=== PATIENT | female | born 1990 | race Caucasian/White ===

== ENCOUNTER 2016-09-28 11:55 | Emergency (ER) | payer MEDICAID ==
[~2016-09-28] VITALS: Ht 170.2 cm; Wt 158.8 kg
[~2016-09-28 11:55] MED LIST: AZIT250T PO; CEPH500C PO; FLUO40CA12 PO; INDOCIN; METR500T21 PO; NALT1TAB PO; NAPR500T PO; ONDA8TAB13 PO; OSLT75C PO; PENT1TAB PO; PRD20T PO; TOPAMAX; TPR25T PO
--- NOTE | 2016-09-28 12:25 | ED GU-Female ---
General Chief Complaint: -Female Stated Complaint: VAG BLEEDING ABD PAIN/CRAMPING Nursing Triage Note: to ER with complaints of vaginal bleeding since having Mirena removed on 09/21/16. Patient reports that it was just intermittent spotting until today, and she has been passing large clots and has noticed heavy bleeding. Patient reports that she has soaked through 3 pads and 2 depends in the past 4 hours. Nursing Sepsis Screen: No Definite Risk Source: patient Exam Limitations: no limitations History of Present Illness Time seen by provider: 12:23 Initial Comments To ER with reports of vaginal bleeding since having her Mirena removed on . She had this in place since 2009 and decided that she would like to have another child. She had this removed on the for that reason. She's had some spotting since then but the bleeding became much heavier today and was passing large clots. She called the nurse line on her insurance card who told her this could be an ectopic and patient is now tearful and worried about that. She reports associated abdominal cramping. Timing/Duration: just prior to arrival, getting worse Severity/Quality: moderate Location: unknown Radiation: none Activities at Onset: none Prior Genitourinary Problems: none Allergies and Home Medications Allergies Coded Allergies: latex (Verified Allergy, Unknown, 11/28/06) paroxetine (Verified Allergy, Unknown, 11/28/06) Uncoded Allergies: STRAWBERRIES (Allergy, Unknown, 11/28/06) Home Medications Azithromycin 250 Mg Tablet, 250 MG PO UD, #6 TAKE 2 TABLETS TODAY, THEN TAKE 1 TABLET DAILY FOR 4 MORE DAYS Prescribed by: SEBASTIAN ACOSTA on 03/27/15 1344 Cephalexin 500 Mg Capsule, 500 MG PO TID, #21 Ref 0 Prescribed by: MICHAEL JOHNSON on 04/07/15 003 Fluoxetine Hcl 40 Mg Capsule, 1 EACH PO DAILY, (Reported) Metronidazole 500 Mg Tablet, 500 MG PO Q8H, #21 Ref 0 Prescribed by: MICHAEL JOHNSON on 04/07/15 003 Naltrexone HCl/Bupropion HCl 1 Each Tablet.er, 1 EACH PO, (Reported) Naproxen 500 Mg Tablet, 500 MG PO BID, #20 Ref 0 Prescribed by: MICHAEL JOHNSON on 04/07/1538 Ondansetron 8 Mg Tab.rapdis, 8 MG PO Q6H PRN for NAUSEA/VOMITING, #10 Ref 0 Prescribed by: MICHAEL JOHNSON on 04/07/15 0039 Pentazocine Hcl/Naloxone Hcl 1 Tab Tablet, 1 TAB PO, (Reported) Prednisone 20 Mg Tab, 20 MG PO BID, #10 Ref 0 Prescribed by: MICHAEL JOHNSON on 04/07/15 0039 Topiramate 25 Mg Tablet, 25 MG PO BID, #60 Prescribed by: ANIBAL DORSEY on 05/21/16 1617 [Indocin] , (Reported) [Topamax] , (Reported) Past Ozhhslo-Seihls-Ttqona Hx Patient Social History Alcohol Use: Denies Use Recreational Drug Use: Yes (Marjorie) Smoking Status: Current Everyday Smoker Type Used: Cigarettes 2nd Hand Smoke Exposure: Yes Recent Foreign Travel: No Contact w/Someone Who Travel: No Recent Infectious Disease Expo: No Recent Hopitalizations: No Immunizations Up To Date Tetanus Booster (TDap): Unknown PED Vaccines UTD: Yes Seasonal Allergies Seasonal Allergies: Yes Surgeries HX Surgeries: Yes (LUMBAR SHUNT, ORAL/JAW SURGERY) Surgeries: Bladder Surgery, Section, Gallbladder Respiratory Hx Respiratory Disorders: Yes (Pleurisy) Cardiovascular Hx Cardiac Disorders: No Neurological Hx Neurological Disorders: Yes (PSEUDOTUMOR CEREBRI) Neurological Disorders: Neuropathy, Seizure Disorder Genitourinary Hx Genitourinary Disorders: No Gastrointestinal Hx Gastrointestinal Disorders: No Musculoskeletal Hx Musculoskeletal Disorders: Yes Musculoskeletal Disorders: Fibromyalgia Endocrine Hx Endocrine Disorders: Yes Endocrine Disorders: Lupus HEENT HX ENT Disorders: No Cancer Hx Cancer: No Psychosocial Hx Psychiatric Problems: Yes Behavioral Health Disorders: Anxiety, Depression Integumentary HX Skin/Integumentary Disorder: No Blood Transfusions Hx Blood Disorders: No Family Medical History Significant Family History: No Pertinent Family Hx Physical Exam Vital Signs Vital Sign - Last 12Hours 09/28/16 12:11 Temp 98.7 Pulse 101 Resp 20 B/P (MAP) 131/86 Pulse Ox 95 O2 Delivery Room Air Capillary Refill : Less Than 3 Seconds Progress/Results/Core Measures Results/Orders Lab Results Laboratory Tests Test 09/28/16 12:27 09/28/16 12:39 Range/Units White Blood Count 12.2 H 4.3-11.0 10^3/uL Red Blood Count 4.78 4.35-5.85 10^6/uL Hemoglobin 13.2 11.5-16.0 G/DL Hematocrit 41 35-52 % Mean Corpuscular Volume 85 80-99 FL Mean Corpuscular Hemoglobin 28 25-34 PG Mean Corpuscular Hemoglobin Concent 32 32-36 G/DL Red Cell Distribution Width 14.5 10.0-14.5 % Platelet Count 282 130-400 10^3/uL Mean Platelet Volume 9.8 7.4-10.4 FL Neutrophils (%) (Auto) 66 42-75 % Lymphocytes (%) (Auto) 26 12-44 % Monocytes (%) (Auto) 7 0-12 % Eosinophils (%) (Auto) 1 0-10 % Basophils (%) (Auto) 0 0-10 % Neutrophils # (Auto) 8.1 H 1.8-7.8 X 10^3 Lymphocytes # (Auto) 3.2 1.0-4.0 X 10^3 Monocytes # (Auto) 0.8 0.0-1.0 X 10^3 Eosinophils # (Auto) 0.1 0.0-0.3 10^3/uL Basophils # (Auto) 0.0 0.0-0.1 10^3/uL Urine Color YELLOW Urine Clarity CLEAR Urine pH 6 5-9 Urine Specific [place] 1.020 1.016-1.022 Urine Protein 2+ H NEGATIVE Urine Glucose (UA) NEGATIVE NEGATIVE Urine Ketones NEGATIVE NEGATIVE Urine Nitrite NEGATIVE NEGATIVE Urine Bilirubin NEGATIVE NEGATIVE Urine Urobilinogen NORMAL NORMAL MG/DL Urine Leukocyte Esterase 1+ H NEGATIVE Urine RBC (Auto) 5+ H NEGATIVE Urine RBC >100 H /HPF Urine WBC 0-2 /HPF Urine Squamous Epithelial Cells 5-10 /HPF Urine Crystals NONE /LPF Urine Bacteria FEW H /HPF Urine Casts NONE /LPF Urine Mucus SMALL H /LPF Urine Culture Indicated NO My Orders Orders - MEENA ESPINO [employer]PER[employer]OR Cbc With Automated Diff (09/28/16 12:01) Urine Bedside (09/28/16 12:01) Ua Culture If Indicated (09/28/16 12:01) Us Pelvic (Non Ob)89252 (09/28/16 12:20) Ibuprofen Tablet (Motrin Tablet) (09/28/16 13:15) Acetaminophen/Codeine Tablet (Tylenol W/ (09/28/16 13:15) Vital Signs/I&O Vital Sign - Last 12Hours 09/28/16 12:11 Temp 98.7 Pulse 101 Resp 20 B/P (MAP) 131/86 Pulse Ox 95 O2 Delivery Room Air Blood Pressure Mean: 101 Departure Impression Impression: Primary Impression: Vaginal bleeding, abnormal Disposition: HOME, SELF-CARE Condition: Stable Departure-Patient Inst. Decision time for Depature: 13:19 Referrals: [facility] (PCP/Family) Primary Care Physician Patient Instructions: NO INSTRUCTIONS GIVEN Add. Discharge Instructions: 1. Return to ER for any concerns 2. Motrin 800 mg every 8 hours 3. Follow-up with your doctor next week All discharge instructions reviewed with patient and/or family. Voiced understanding. Scripts Ibuprofen (Ibuprofen) 800 Mg Tablet 800 MG PO Q8H Y for PAIN, #30 TAB Prov: MEENA ESPINO APRN 09/28/16 Acetaminophen with Codeine (Tylenol with Codeine #3 Tablet) 1 Each Tablet 1 EACH PO Q6H Y for PAIN-MODERATE, #14 TAB Prov: MEENA ESPINO APRN 09/28/16 MEENA ESPINO APRN September 28, 2016 12:25
[2016-09-28 12:34] LABS: BASOPHILS % (AUTO) 0 % (0-10); EOSINOPHILS # (AUTO) 0.1 10^3/uL (0.0-0.3); EOSINOPHILS % (AUTO) 1 % (0-10); LYMPHOCYTES # (AUTO) 3.2 X 10^3 (1.0-4.0); LYMPHOCYTES % (AUTO) 26 % (12-44); MEAN CORPUSCULAR HEMOGLOBIN 28 PG (25-34); MEAN CORPUSCULAR HGB CONC 32 G/DL (32-36); MEAN CORPUSCULAR VOLUME 85 FL (80-99); MEAN PLATELET VOLUME 9.8 FL (7.4-10.4); MONOCYTES # (AUTO) 0.8 X 10^3 (0.0-1.0); MONOCYTES % (AUTO) 7 % (0-12); NEUTROPHILS # (AUTO) 8.1 X 10^3 (1.8-7.8); NEUTROPHILS % (AUTO) 66 % (42-75); PLATELET COUNT 282 10^3/uL (130-400); RED BLOOD COUNT 4.78 10^6/uL (4.35-5.85); RED CELL DISTRIBUTION WIDTH 14.5 % (10.0-14.5); WHITE BLOOD COUNT 12.2 10^3/uL (4.3-11.0)
[2016-09-28 12:44] LABS: BILIRUBIN,URINE NEGATIVE (NEGATIVE); KETONES,URINE NEGATIVE (NEGATIVE); LEUKOCYTE ESTERASE ,URINE 1+ (NEGATIVE); NITRITE,URINE NEGATIVE (NEGATIVE); PH,URINE 6 (5-9); PROTEIN,URINE 2+ (NEGATIVE); UROBILINOGEN,URINE NORMAL (NORMAL)
[2016-09-28 12:56] LABS: WBC,URINE 0-2 /HPF
[2016-09-28] MEDS ORDERED: IBUPROFEN 800 MG (MOTRIN) TAB PO ONE (13:15)
[2016-09-28] MEDS ORDERED: APAP 300 MG/CODEINE 30 MG (TYLENOL #3) TAB PO ONE (13:15)
[2016-09-28] MEDS ORDERED: ACET-789 PO (13:22)
[2016-09-28] MEDS ORDERED: IBUP-1780 PO (13:22)
[2016-09-28 13:30] VITALS: BP 131/86
--- NOTE | 2016-09-28 14:01 | Diagnostic Imaging Report ---
INDICATION: Vaginal bleeding and pelvic pain. EXAM: Pelvic sonography performed with transvaginal views. FINDINGS: The uterus measures 9.8 x 5.0 x 4.5 cm. There is no uterine mass. Endometrium measured 9 mm in thickness. Ovaries were not visualized. There is no ascites. IMPRESSION: No uterine mass. Endometrium measured 9 mm which is normal for a patient of menstrual age. Ovaries are nonvisualized. Dictated by: Dictated on workstation # [id number]
== END 2016-09-28 13:30 | disposition home or self-care (01) ==
LOC: EDUNIT# 11:55 → ER 11:58
DX: N93.9 Abnormal uterine and vaginal bleeding, unspecified (principal); F17.210 Nicotine dependence, cigarettes, uncomplicated
CPT/HCPCS: 36415; 76830; 81000; 84703; 85025; 99282

== ENCOUNTER 2016-11-15 06:27 | Outpatient (CLI) | payer MEDICAID ==
[~2016-11-15 06:27] MED LIST changes: +ACET-789 PO; +IBUP-1780 PO
[2016-11-15] MEDS ORDERED: METF500T4 PO (14:56)
[2016-11-15] MEDS ORDERED: OMEP20CA12 PO (14:56)
== END 2016-11-15 15:05 ==
DX: Z01.818 Encounter for other preprocedural examination (principal); R10.13 Epigastric pain; R19.5 Other fecal abnormalities

== ENCOUNTER 2016-12-18 14:52 | Emergency (ER) | payer MEDICAID ==
[~2016-12-18] VITALS: Ht 170.2 cm; Wt 158.8 kg
[~2016-12-18 14:52] MED LIST changes: +METF500T4 PO; +OMEP20CA12 PO
[2016-12-18] MEDS ORDERED: fentaNYL INJECTION 100 MCG/2 ML AMP IVP STA (16:05)
[2016-12-18] MEDS ORDERED: FAMOTIDINE 20MG/2ML IV (PEPCID) IV STA (16:05)
[2016-12-18] MEDS ORDERED: NS IV 1000 ML 1,000 ML IV STA (16:05)
[2016-12-18] MEDS ORDERED: ONDANSETRON 4 MG/2 ML (SDV) Z0FRAN IVP ONE (16:15)
[2016-12-18] MEDS ORDERED: LIDOCAINE 2% VISCOUS 15 ML UDC PO ONE (16:15)
[2016-12-18] MEDS ORDERED: ANTACID SUSP 30 ML UDC (MYLANTA) PO ONE (16:15)
--- NOTE | 2016-12-18 16:16 | ED Abdominal Pain ---
General Chief Complaint: Abdominal/GI Problems Stated Complaint: ABD PAIN Nursing Triage Note: pt reports increased acid reflux related issues for 2 months. pt reports she ran out of her prescription for omeprazole about a month ago. pt reports she was scheduled for a upper and lower scope by Dr Goncalves November 18 but had to rescedule to December 02. Pt reports she was unable to go to that procedure as well. Pt reports increase in vomiting abd abdominal pain. Sepsis Screen: No Definite Risk Source of Information: Patient Exam Limitations: No Limitations History of Present Illness Time Seen By Provider: 15:56 Initial Comments Here with report of increasing abdominal pain over the last couple of months. She's had [address] Becker but missed both of those due to anxiety concerns about an operation. Apparently her mother while getting anesthesia. She reports significant burning pain to the upper abdomen and left lower abdomen. She had been on medicines for reflux but now is only doing over- the-counter medicines. She apparently had stopped those for some time and then restarted them. She reports taking Pepto-Bismol and oziu-mkr-moyogvo acid cook vegetable and this has not helped her pain. Reports dark stools that occurred prior to the Pepto-Bismol use. States pain is unrelenting. She has been taking aspirin and meloxicam for the pain and that has not helped. Timing/Duration: Getting Worse, Other (2 months) Severity/Quality: Moderate, Severe, Burning Location: RUQ, LUQ, LLQ Activities at Onset: None Modifying Factors: Worsens With Eating, Worsens With Vomiting Associated Symptoms: No Back Pain, No Chest Pain, No Fever/Chills, Nausea/ Vomiting, No Shortness of Air, No Weakness Allergies and Home Medications Allergies Coded Allergies: cinnamon (Verified Allergy, Severe, ANAPHYLAXIS, 11/15/16) hydroxyzine (Verified Allergy, Severe, SUICIDAL, 11/15/16) pregabalin (Verified Allergy, Severe, SUICIDAL, 11/15/16) acetazolamide (Verified Allergy, Intermediate, SWELLING, 11/15/16) ketorolac (Verified Allergy, Intermediate, SHAKING, 11/15/16) tramadol (Verified Allergy, Intermediate, SHAKING, 11/15/16) latex (Verified Allergy, Unknown, 11/15/16) paroxetine (Verified Allergy, Unknown, 11/15/16) Home Medications Metformin HCl 500 Mg Tablet, 500 MG PO DAILY, (Reported) Omeprazole 20 Mg Capsule.dr, 20 MG PO BID, (Reported) Review of Systems Constitutional: see HPI, No chills, No fever EENTM: No Symptoms Reported Respiratory: No Symptoms Reported Cardiovascular: No Symptoms Reported Gastrointestinal: See HPI, Abdominal Pain, Nausea, Rectal Bleeding, Vomiting Genitourinary: No Symptoms Reported Musculoskeletal: no symptoms reported Skin: no symptoms reported Psychiatric/Neurological: See HPI, Anxiety, Emotional Problems All Other Systems Reviewed Negative Unless Noted: Yes Past Ogubduq-Vertri-Wrvcrx Hx Patient Social History Alcohol Use: Denies Use Recreational Drug Use: No Smoking Status: Current Everyday Smoker Type Used: Cigarettes 2nd Hand Smoke Exposure: Yes Recent Foreign Travel: No Contact w/Someone Who Travel: No Recent Infectious Disease Expo: No Recent Hopitalizations: No Immunizations Up To Date Tetanus Booster (TDap): Unknown PED Vaccines UTD: Yes Seasonal Allergies Seasonal Allergies: Yes Surgeries HX Surgeries: Yes (LUMBAR SHUNT, ORAL/JAW SURGERY) Surgeries: Bladder Surgery, Section, Gallbladder Respiratory Hx Respiratory Disorders: Yes (Pleurisy) Cardiovascular Hx Cardiac Disorders: No Cardiac Disorders: High Cholesterol, Hypertension Neurological Hx Neurological Disorders: Yes (PSEUDOTUMOR CEREBRI) Neurological Disorders: Neuropathy, Seizure Disorder Reproductive System Hx Reproductive Disorders: No Sexually Transmitted Disease: No HIV/AIDS: No Female Reproductive Disorders: Denies Genitourinary Hx Genitourinary Disorders: Yes Genitourinary Disorders: UTI-Chronic Gastrointestinal Hx Gastrointestinal Disorders: Yes (BLACK STOOLS, EPIGASTRIC PAIN, NAUSEA) Gastrointestinal Disorders: Gastroesophageal Reflux, Chronic Constipation, Chronic Diarrhea Musculoskeletal Hx Musculoskeletal Disorders: Yes (HERNIATED DISC) Musculoskeletal Disorders: Arthritis, Fibromyalgia, Scoliosis, Chronic Back Pain Endocrine Hx Endocrine Disorders: Yes Endocrine Disorders: Diabetes, Non-Insulin dep, Lupus HEENT HX ENT Disorders: Yes (GLASSES) Loss of Vision: Bilateral Hearing Impairment: Denies Cancer Hx Cancer: No Psychosocial Hx Psychiatric Problems: Yes Behavioral Health Disorders: Anxiety, Depression Integumentary HX Skin/Integumentary Disorder: No Blood Transfusions Hx Blood Disorders: No Adverse Reaction to a Blood Tr: No Reviewed Nursing Assessment Reviewed/Agree w Nursing PMH: Yes Family Medical History Significant Family History: No Pertinent Family Hx Physical Exam Vital Signs VS - Last 72 Hours, by Label 12/18/16 15:35 Temp 98.1 Pulse 92 Resp 18 B/P (MAP) 136/95 Pulse Ox 98 Capillary Refill : Less Than 3 Seconds General Appearance: WD/WN, mild distress (anxiousness), obese HEENT: PERRL/EOMI, pharynx normal Neck: full range of motion, supple Respiratory: lungs clear, normal breath sounds Cardiovascular: regular rate, rhythm, no murmur Gastrointestinal: soft, No guarding, No rebound, tenderness (diffuse) Extremities: non-tender, normal inspection Back: normal inspection, no CVA tenderness, no vertebral tenderness Neurologic/Psychiatric: alert, oriented x 3 Skin: normal color, warm/dry Progress/Results/Core Measures Results/Orders Lab Results Laboratory Tests Test 12/18/16 15:46 12/18/16 17:05 Range/Units White Blood Count 15.3 H 4.3-11.0 10^3/uL Red Blood Count 4.95 4.35-5.85 10^6/uL Hemoglobin 13.5 11.5-16.0 G/DL Hematocrit 42 35-52 % Mean Corpuscular Volume 85 80-99 FL Mean Corpuscular Hemoglobin 27 25-34 PG Mean Corpuscular Hemoglobin Concent 32 32-36 G/DL Red Cell Distribution Width 14.6 H 10.0-14.5 % Platelet Count 349 130-400 10^3/uL Mean Platelet Volume 10.2 7.4-10.4 FL Neutrophils (%) (Auto) 69 42-75 % Lymphocytes (%) (Auto) 23 12-44 % Monocytes (%) (Auto) 7 0-12 % Eosinophils (%) (Auto) 1 0-10 % Basophils (%) (Auto) 0 0-10 % Neutrophils # (Auto) 10.6 H 1.8-7.8 X 10^3 Lymphocytes # (Auto) 3.6 1.0-4.0 X 10^3 Monocytes # (Auto) 1.0 0.0-1.0 X 10^3 Eosinophils # (Auto) 0.1 0.0-0.3 10^3/uL Basophils # (Auto) 0.0 0.0-0.1 10^3/uL Neutrophils % (Manual) 59 % Lymphocytes % (Manual) 24 % Monocytes % (Manual) 7 % Eosinophils % (Manual) 1 % Basophils % (Manual) 0 % Band Neutrophils 9 % Blood Morphology Comment NORMAL Sodium Level 141 135-145 MMOL/L Potassium Level 3.9 3.6-5.0 MMOL/L Chloride Level 106 98-107 MMOL/L Carbon Dioxide Level 24 21-32 MMOL/L Anion Gap 11 5-14 MMOL/L Blood Urea Nitrogen 10 7-18 MG/DL Creatinine 0.77 0.60-1.30 MG/DL Estimat Glomerular Filtration Rate > 60 BUN/Creatinine Ratio 13 Glucose Level 89 70-105 MG/DL Calcium Level 9.7 8.5-10.1 MG/DL Magnesium Level 2.3 1.8-2.4 MG/DL Total Bilirubin 0.2 0.1-1.0 MG/DL Aspartate Amino Transf (AST/SGOT) 17 5-34 U/L Alanine Aminotransferase (ALT/SGPT) 26 0-55 U/L Alkaline Phosphatase 87 40-136 U/L Total Protein 7.9 6.4-8.2 GM/DL Albumin 3.9 3.2-4.5 GM/DL Amylase Level 44 25-125 U/L Lipase 31 8-78 U/L Urine Color YELLOW Urine Clarity CLEAR Urine pH 6 5-9 Urine Specific [place] 1.020 1.016-1.022 Urine Protein NEGATIVE NEGATIVE Urine Glucose (UA) NEGATIVE NEGATIVE Urine Ketones NEGATIVE NEGATIVE Urine Nitrite NEGATIVE NEGATIVE Urine Bilirubin NEGATIVE NEGATIVE Urine Urobilinogen NORMAL NORMAL MG/DL Urine Leukocyte Esterase NEGATIVE NEGATIVE Urine RBC (Auto) 3+ H NEGATIVE Urine RBC 5-10 H /HPF Urine WBC NONE /HPF Urine Squamous Epithelial Cells 0-2 /HPF Urine Crystals PRESENT H /LPF Urine Calcium Oxalate Crystals FEW H /LPF Urine Bacteria NONE /HPF Urine Casts NONE /LPF Urine Mucus NEGATIVE /LPF Urine Culture Indicated NO My Orders Orders - SKYE RODRIGUEZ MD Amylase (12/18/16 16:05) Cbc With Automated Diff (12/18/16 16:05) Comprehensive Metabolic Panel (12/18/16 16:05) Lipase (12/18/16 16:05) Magnesium (12/18/16 16:05) Ua Culture If Indicated (12/18/16 16:05) Fentanyl Injection (Sublimaze Injection (12/18/16 16:05) Ondansetron Injection (Zofran Injectio (12/18/16 16:15) Lidocaine 2% Viscous 15 Ml (Xylocaine Vi (12/18/16 16:15) Ns Iv 1000 Ml (Sodium Chloride 0.9%) (12/18/16 16:05) Antacid Suspension (Mylanta Suspension (12/18/16 16:15) Famotidine Injection (Pepcid Injection) (12/18/16 16:05) Saline Lock/Iv-Start (12/18/16 16:05) Pantoprazole Injection (Protonix Injecti (12/18/16 16:30) Fecal Occult Bedside (12/18/16 16:31) Manual Differential (12/18/16 15:46) Sucralfate Tablet (Carafate Tablet) (12/18/16 18:00) Medications Given in ED Current Medications Medications Dose Ordered Sig/Lee Ann Route Start Time Stop Time Status Last Admin Dose Admin Al Hydrox/Mg Hydrox/Simethicone 30 ml ONCE ONCE PO 12/18/16 16:15 12/18/16 16:16 DC 12/18/16 16:39 30 ML Lidocaine HCl 15 ml ONCE ONCE PO 12/18/16 16:15 12/18/16 16:16 DC 12/18/16 16:39 15 ML Ondansetron HCl 4 mg ONCE ONCE IVP 12/18/16 16:15 12/18/16 16:16 DC 12/18/16 16:40 4 MG Pantoprazole 40 mg ONCE ONCE IV 12/18/16 16:30 12/18/16 16:31 DC 12/18/16 16:40 40 MG Vital Signs/I&O Vital Sign - Last 12Hours 12/18/16 15:35 Temp 98.1 Pulse 92 Resp 18 B/P (MAP) 136/95 Pulse Ox 98 Blood Pressure Mean: 109 Progress Note : Progress Note Seen and evaluated. IV, labs, UA, Zofran 4 mg IV, fentanyl 75 g IV, normal saline 1 L bolus, Pepcid 20 mg IV and GI cocktail ordered. Monitor patient. 1800: Improved. Carafate 1 g by mouth given. We will continue this outpatient and she will follow up with her doctor. She has refused rectal exam. Hemoglobin is stable so this is probably okay the patient understands that she needs to have further studies. She will follow-up with Dr. Becker for upper and lower endoscopy. Discharged home with return precautions. Patient verbalize understanding instructions and agreement with plan. Departure Impression Impression: Primary Impression: Epigastric abdominal pain Disposition: HOME, SELF-CARE Condition: Improved Departure-Patient Inst. Referrals: [facility] (PCP/Family) Primary Care Physician Patient Instructions: Acute Abdomen (Belly Pain), Adult (DC), Peptic Ulcers (DC ) Add. Discharge Instructions: All discharge instructions reviewed with patient and/or family. Voiced understanding. Take medications as directed. Follow-up with your Dr. in one to 2 days for recheck clear liquid diet for 24 hours and then advance as tolerated. Eat very light foods to decrease upset stomach. Follow-up with Dr. Becker as soon as able for recheck and further evaluation and to set up upper and lower endoscopy for evaluation. Return for worsening, fever, vomiting, weakness, breathing problems or other concerns as needed. Scripts Sucralfate (Carafate) 1 Gm Tablet 1 GM PO ACHS, #120 TAB Prov: SKYE RODRIGUEZ MD 12/18/16 Omeprazole (Omeprazole) 20 Mg Capsule. 20 MG PO BID, #60 CAP 1 Refill Prov: SKYE RODRIGUEZ MD 12/18/16 SKYE RODRIGUEZ MD Dec 18, 2016 16:16
[2016-12-18] MEDS ORDERED: PANTOPRAZOLE 40 MG/10 ML (PROTONIX) VIAL IV ONE (16:30)
[2016-12-18 16:36] LABS: BASOPHILS % (AUTO) 0 % (0-10); EOSINOPHILS # (AUTO) 0.1 10^3/uL (0.0-0.3); EOSINOPHILS % (AUTO) 1 % (0-10); LYMPHOCYTES # (AUTO) 3.6 X 10^3 (1.0-4.0); LYMPHOCYTES % (AUTO) 23 % (12-44); MEAN CORPUSCULAR HEMOGLOBIN 27 PG (25-34); MEAN CORPUSCULAR HGB CONC 32 G/DL (32-36); MEAN CORPUSCULAR VOLUME 85 FL (80-99); MEAN PLATELET VOLUME 10.2 FL (7.4-10.4); MONOCYTES % (AUTO) 7 % (0-12); NEUTROPHILS # (AUTO) 10.6 X 10^3 (1.8-7.8); NEUTROPHILS % (AUTO) 69 % (42-75); PLATELET COUNT 349 10^3/uL (130-400); RED BLOOD COUNT 4.95 10^6/uL (4.35-5.85); RED CELL DISTRIBUTION WIDTH 14.6 % (10.0-14.5); WHITE BLOOD COUNT 15.3 10^3/uL (4.3-11.0)
[2016-12-18 16:59] LABS: ALANINE AMINOTRANSFERASE 26 U/L (0-55); ALBUMIN 3.9 GM/DL (3.2-4.5); AMYLASE 44 U/L (25-125); ANION GAP 11 MMOL/L (5-14); ASPARTATE AMINO TRANSFERASE 17 U/L (5-34); BILIRUBIN,TOTAL 0.2 MG/DL (0.1-1.0); BLOOD UREA NITROGEN 10 MG/DL (7-18); BUN/CREATININE RATIO 13; CALCIUM 9.7 MG/DL (8.5-10.1); CARBON DIOXIDE 24 MMOL/L (21-32); CHLORIDE 106 MMOL/L (98-107); CREATININE SERUM 0.77 MG/DL (0.60-1.30); GFR ESTIMATED > 60; GLUCOSE 89 MG/DL (70-105); LIPASE 31 U/L (8-78); MAGNESIUM 2.3 MG/DL (1.8-2.4); POTASSIUM 3.9 MMOL/L (3.6-5.0); SODIUM 141 MMOL/L (135-145); TOTAL PROTEIN 7.9 GM/DL (6.4-8.2)
[2016-12-18 17:02] LABS: BAND NEUTROPHILS 9 %; BASOPHILS % (MANUAL) 0 %; EOSINOPHILS % (MANUAL) 1 %; LYMPHOCYTES % (MANUAL) 24 %; NEUTROPHILS % (MANUAL) 59 %
[2016-12-18 17:45] LABS: BILIRUBIN,URINE NEGATIVE (NEGATIVE); KETONES,URINE NEGATIVE (NEGATIVE); LEUKOCYTE ESTERASE ,URINE NEGATIVE (NEGATIVE); NITRITE,URINE NEGATIVE (NEGATIVE); PH,URINE 6 (5-9); PROTEIN,URINE NEGATIVE (NEGATIVE); UROBILINOGEN,URINE NORMAL (NORMAL)
[2016-12-18 17:54] LABS: CALCIUM OXALATE CRYSTALS,UR FEW /LPF; SQUAMOUS EPITHELIAL CELL,UR 0-2 /HPF
[2016-12-18] MEDS ORDERED: SUCRALFATE 1 GM (CARAFATE) TAB PO ONE (18:00)
[2016-12-18] MEDS ORDERED: OMEP20CA12 PO (18:15)
[2016-12-18] MEDS ORDERED: SUCR1TAB36 PO (18:15)
[2016-12-18 18:26] VITALS: BP 130/74
== END 2016-12-18 18:26 | disposition home or self-care (01) ==
LOC: EDUNIT# 14:52 → ER 14:54
DX: R10.13 Epigastric pain (principal); F41.9 Anxiety disorder, unspecified; F31.9 Bipolar disorder, unspecified; E11.9 Type 2 diabetes mellitus without complications; M47.9 Spondylosis, unspecified; K21.9 Gastro-esophageal reflux disease without esophagitis; K59.09 Other constipation; G40.909 Epilepsy, unspecified, not intractable, without status epilepticus; E78.00 Pure hypercholesterolemia, unspecified; I10 Essential (primary) hypertension; G93.2 Benign intracranial hypertension; F17.210 Nicotine dependence, cigarettes, uncomplicated; Z79.84 Long term (current) use of oral hypoglycemic drugs; Z96.89 Presence of other specified functional implants; Z98.890 Other specified postprocedural states
CPT/HCPCS: 36415; 80053; 81000; 82150; 83690; 83735; 84703; 85007; 85027; 96361; 96374; 96375

== ENCOUNTER 2017-06-12 16:47 | Emergency (ER) | payer MEDICAID ==
[~2017-06-12] VITALS: Ht 167.6 cm; Wt 136.1 kg
[~2017-06-12 16:47] MED LIST changes: +NAPR-1071 PO; -NAPR500T PO; +SUCR1TAB36 PO
--- NOTE | 2017-06-12 18:20 | ED General ---
General Chief Complaint: General Problems/Pain Stated Complaint: TEETH VENEERS STUCK TO TEETH Nursing Triage Note: ARRIVED VIA AMB TO ROOM 09. STATES SHE PUT ADHESIVE ON HER TEETH TO PUT ON THIS "PERFECT SMILE" SHE BOUGHT BUT NOW SHE CAN NOT GET THE ADHESIVE OFF. Nursing Sepsis Screen: No Definite Risk Allergies and Home Medications Allergies Coded Allergies: cinnamon (Verified Allergy, Severe, ANAPHYLAXIS, 11/15/16) hydroxyzine (Verified Allergy, Severe, SUICIDAL, 11/15/16) pregabalin (Verified Allergy, Severe, SUICIDAL, 11/15/16) acetazolamide (Verified Allergy, Intermediate, SWELLING, 11/15/16) ketorolac (Verified Allergy, Intermediate, SHAKING, 11/15/16) tramadol (Verified Allergy, Intermediate, SHAKING, 11/15/16) latex (Verified Allergy, Unknown, 11/15/16) paroxetine (Verified Allergy, Unknown, 11/15/16) Home Medications Metformin HCl 500 Mg Tablet, 500 MG PO DAILY, (Reported) Omeprazole 20 Mg Capsule.dr, 20 MG PO BID, (Reported) Omeprazole 20 Mg Capsule.dr, 20 MG PO BID, #60 Ref 1 Prescribed by: SKYE RODRIGUEZ on 12/18/161814 Sucralfate 1 Gm Tablet, 1 GM PO ACHS, #120 Prescribed by: SKYE RODRIGUEZ on 12/18/161814 Past Dxkkxtu-Fpkcua-Habqgo Hx Patient Social History Alcohol Use: Denies Use Alcohol Beverage of Choice: Wine Recreational Drug Use: Yes (POT) Smoking Status: Current Everyday Smoker Type Used: Cigarettes 2nd Hand Smoke Exposure: Yes Recent Foreign Travel: No Contact w/Someone Who Travel: No Recent Infectious Disease Expo: No Recent Hopitalizations: No Immunizations Up To Date Tetanus Booster (TDap): Unknown PED Vaccines UTD: Yes Seasonal Allergies Seasonal Allergies: Yes Surgeries History of Surgeries: Yes (LUMBAR SHUNT, ORAL/JAW SURGERY) Surgeries: Bladder Surgery, Section, Gallbladder Respiratory History of Respiratory Disorde: Yes (Pleurisy) Cardiovascular History of Cardiac Disorders: Yes Cardiac Disorders: High Cholesterol, Hypertension Neurological History of Neurological Disord: Yes (PSEUDOTUMOR CEREBRI) Neurological Disorders: Neuropathy, Seizure Disorder Reproductive System Hx Reproductive Disorders: No Sexually Transmitted Disease: No HIV/AIDS: No Female Reproductive Disorders: Denies Genitourinary History of Genitourinary Disor: No Genitourinary Disorders: UTI-Chronic Gastrointestinal History of Gastrointestinal Di: Yes (BLACK STOOLS, EPIGASTRIC PAIN, NAUSEA) Gastrointestinal Disorders: Gastroesophageal Reflux, Chronic Constipation, Chronic Diarrhea Musculoskeletal History of Musculoskeletal Dis: Yes (HERNIATED DISC) Musculoskeletal Disorders: Arthritis, Fibromyalgia, Scoliosis, Chronic Back Pain Endocrine History of Endocrine Disorders: Yes Endocrine Disorders: Diabetes, Non-Insulin dep, Lupus HEENT Loss of Vision: Bilateral Hearing Impairment: Denies Cancer History of Cancer: No Psychosocial History of Psychiatric Problem: Yes Behavioral Health Disorders: Anxiety, Depression Integumentary History of Skin or Integumenta: No Blood Transfusions History of Blood Disorders: No Adverse Reaction to a Blood Tr: No Family Medical History Significant Family History: No Pertinent Family Hx Physical Exam Vital Signs Vital Sign - Last 12Hours 06/12/17 16:56 Temp 98.0 Pulse 108 Resp 18 B/P (MAP) 140/108 (119) Pulse Ox 98 Capillary Refill : Less Than 3 Seconds Progress/Results/Core Measures Suspected Sepsis Recent Fever Within 48 Hours: No Infection Criteria Present: None New/Unexplained Altered Menta: No Sepsis Screen: No Definite Risk Sepsis Diagnosis: SIRS Temperature:98.0 Pulse: 108 Respiratory Rate: 18 Blood Pressure 140 /108 Mean: 119 Results/Orders Vital Signs/I&O Vital Sign - Last 12Hours 06/12/17 16:56 Temp 98.0 Pulse 108 Resp 18 B/P (MAP) 140/108 (119) Pulse Ox 98 Capillary Refill : Less Than 3 Seconds Blood Pressure Mean: 119 Departure Impression Impression: Primary Impression: ADHERED DENTAL PRODUCT Disposition: 01 HOME, SELF-CARE Condition: Stable Departure-Patient Inst. Referrals: [facility] (PCP/Family) Primary Care Physician Patient Instructions: NO INSTRUCTIONS GIVEN Add. Discharge Instructions: FOLLOW UP WITH [facility] IN AM TYLENOL AND MOTRIN NEEDED FOR PAIN All discharge instructions reviewed with patient and/or family. Voiced understanding. FLAKITO CONWAY DO Jun 12, 2017 18:20
[2017-06-12 18:26] VITALS: BP 140/108
== END 2017-06-12 18:26 | disposition home or self-care (01) ==
LOC: ER 16:47
DX: K08.89 Other specified disorders of teeth and supporting structures (principal); E78.00 Pure hypercholesterolemia, unspecified; I10 Essential (primary) hypertension; G40.909 Epilepsy, unspecified, not intractable, without status epilepticus; E11.40 Type 2 diabetes mellitus with diabetic neuropathy, unspecified; K21.9 Gastro-esophageal reflux disease without esophagitis; K59.09 Other constipation; F41.9 Anxiety disorder, unspecified; F32.9 Major depressive disorder, single episode, unspecified; F12.90 Cannabis use, unspecified, uncomplicated; F17.210 Nicotine dependence, cigarettes, uncomplicated; Z79.84 Long term (current) use of oral hypoglycemic drugs; Z87.59 Personal history of other complications of pregnancy, childbirth and the puerperium
CPT/HCPCS: 99281

== ENCOUNTER 2019-03-20 16:16 | Emergency (ER) | payer MEDICAID ==
[~2019-03-20] VITALS: Ht 167 cm; Wt 155.3 kg
[~2019-03-20 16:16] MED LIST changes: +METF-397 PO; -METF500T4 PO; +METR-145 PO; -METR500T21 PO; -OMEP20CA12 PO; +OMEP20CA13 PO
--- NOTE | 2019-03-20 18:30 | NUR ---
PT ASKED FOR URINE SPECIMEN BUT REPORTS SHE WENT WHILE WAITING AND IS UNABLE TO VOID AT THIS TIME.
[2019-03-20] MEDS ORDERED: LACTATED RINGERS 1,000 ML IV ONE (18:49)
[2019-03-20] MEDS ORDERED: PROMETHAZINE INJ 25 MG/ML (PHENERGAN) AMP IVP ONE (19:00)
[2019-03-20 19:16] LABS: BILIRUBIN,URINE NEGATIVE (NEGATIVE); CLARITY,URINE CLEAR; COLOR,URINE YELLOW; GLUCOSE, URINE (UA) NEGATIVE (NEGATIVE); KETONES,URINE 2+ (NEGATIVE); LEUKOCYTE ESTERASE ,URINE 1+ (NEGATIVE); NITRITE,URINE NEGATIVE (NEGATIVE); PH,URINE 5 (5-9); PROTEIN,URINE 1+ (NEGATIVE)
[2019-03-20 19:28] LABS: BUN/CREATININE RATIO 9; CALCIUM 10.1 MG/DL (8.5-10.1); CARBON DIOXIDE 23 MMOL/L (21-32); CHLORIDE 104 MMOL/L (98-107); CREATININE SERUM 0.64 MG/DL (0.60-1.30); GFR ESTIMATED > 60; GLUCOSE 83 MG/DL (70-105); MAGNESIUM 1.9 MG/DL (1.6-2.4); POTASSIUM 3.6 MMOL/L (3.6-5.0); SODIUM 137 MMOL/L (135-145)
[2019-03-20 19:36] LABS: BACTERIA,URINE TRACE /HPF; SQUAMOUS EPITHELIAL CELL,UR TNTC /HPF
--- NOTE | 2019-03-20 19:59 | ED GU-Female ---
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 PAIN IS INCREASING. SHE DENIES BLEEDING BUT STATES THAT THERE IS AN INCREASE IN DISCHARGE. Nursing Sepsis Screen: No Definite Risk Source: patient Exam Limitations: no limitations History of Present Illness Date Seen by Provider: Mar 20, 2019 Time Seen by Provider: 18:05 Initial Comments This 28-year-old woman at approximately 16 weeks gestational age presents to the emergency room with cramping and abdominal discomfort for the past few hours. She denies any bleeding. She does have some vaginal discharge which seems to be physiologic. It is thin and clearish. She denies any dysuria, fever, diarrhea, or constipation. She has had nausea and vomiting during this . Allergies and Home Medications Allergies Coded Allergies: cinnamon (Verified Allergy, Severe, ANAPHYLAXIS, 11/15/16) hydroxyzine (Verified Allergy, Severe, SUICIDAL, 11/15/16) pregabalin (Verified Allergy, Severe, SUICIDAL, 11/15/16) acetazolamide (Verified Allergy, Intermediate, SWELLING, 11/15/16) ketorolac (Verified Allergy, Intermediate, SHAKING, 11/15/16) tramadol (Verified Allergy, Intermediate, SHAKING, 11/15/16) latex (Verified Allergy, Unknown, 11/15/16) paroxetine (Verified Allergy, Unknown, 11/15/16) Home Medications Metformin HCl 500 Mg Tablet, 500 MG PO DAILY, (Reported) Omeprazole 20 Mg Capsule.dr, 20 MG PO BID, (Reported) Omeprazole 20 Mg Capsule.dr, 20 MG PO BID Prescribed by: SKYE RODRIGUEZ on 12/18/161814 Sucralfate 1 Gm Tablet, 1 GM PO ACHS Prescribed by: SKYE RODRIGUEZ on 12/18/161814 Patient Home Medication List Home Medication List Reviewed: Yes Review of Systems Review of Systems Constitutional: no symptoms reported EENTM: no symptoms reported Respiratory: no symptoms reported Cardiovascular: no symptoms reported Gastrointestinal: see HPI Genitourinary: see HPI : Yes Musculoskeletal: no symptoms reported Skin: no symptoms reported Psychiatric/Neurological: No Symptoms Reported Endocrine: No Symptoms Reported Past Xhynlyq-Lobklp-Hnqtoj Hx Past Med/Social Hx: Reviewed Nursing Past Med/Soc Hx Patient Social History Alcohol Use: Denies Use Number of Drinks Today: Alcohol Beverage of Choice: Wine Recreational Drug Use: No Smoking Status: Former Smoker Type Used: Cigarettes 2nd Hand Smoke Exposure: Yes Recent Foreign Travel: No Contact w/Someone Who Travel: No Recent Infectious Disease Expo: No Recent Hopitalizations: No Immunizations Up To Date Tetanus Booster (TDap): Unknown PED Vaccines UTD: Yes Seasonal Allergies Seasonal Allergies: Yes Past Medical History Surgeries: Yes (LUMBAR SHUNT, ORAL/JAW SURGERY) Bladder Surgery, Section, Gallbladder Respiratory: Yes (Pleurisy) Cardiac: Yes High Cholesterol, Hypertension Neurological: Yes (PSEUDOTUMOR CEREBRI) Neuropathy, Seizure Disorder : Yes Reproductive Disorders: No Female Reproductive Disorders: Denies Sexually Transmitted Disease: No HIV/AIDS: No Genitourinary: No UTI-Chronic Gastrointestinal: Yes (BLACK STOOLS, EPIGASTRIC PAIN, NAUSEA) Gastroesophageal Reflux, Chronic Constipation, Chronic Diarrhea Musculoskeletal: Yes (HERNIATED DISC) Arthritis, Fibromyalgia, Scoliosis, Chronic Back Pain Endocrine: Yes Diabetes, Non-Insulin dep, Lupus Loss of Vision: Bilateral Hearing Impairment: Denies Cancer: No Psychosocial: Yes Anxiety, Depression Integumentary: No Blood Disorders: No Adverse Reaction/Blood Tranf: No Family Medical History No Pertinent Family Hx Physical Exam Vital Signs Vital Signs - First Documented 03/20/19 03/20/19 16:46 20:05 Temp 35.0 Pulse 78 Resp 20 B/P (MAP) 124/65 (84) Pulse Ox 98 O2 Delivery Room Air Capillary Refill : Less Than 3 Seconds Height, Weight, BMI Height: 5'6.00" Weight: 300lbs. 0.0oz. [id number]; 55.00 BMI Method:Estimated General Appearance: WD/WN, no apparent distress HEENT: normal ENT inspection Neck: normal inspection Cardiovascular: regular rate, rhythm, no edema, no murmur Respiratory: lungs clear, normal breath sounds, no respiratory distress, no accessory muscle use Gastrointestinal: normal bowel sounds, non tender, soft, other ( heart tones 145 by Doppler) Extremities: normal inspection, no pedal edema Neurologic/Psychiatric: paedodontist II-XII nml as tested, no motor/sensory deficits, alert, normal mood/affect, oriented x 3 Skin: normal color, warm/dry Progress/Results/Core Measures Suspected Sepsis Recent Fever Within 48 Hours: No Infection Criteria Present: None New/Unexplained Altered Menta: No Sepsis Screen: No Definite Risk SIRS Temperature: Pulse: 78 Respiratory Rate: 20 Blood Pressure 124 /65 Mean: 84 Laboratory Tests 03/20/19 19:03: Creatinine 0.64 Results/Orders Lab Results Laboratory Tests Test 03/20/19 19:03 03/20/19 19:07 Range/Units Sodium Level 137 135-145 MMOL/L Potassium Level 3.6 3.6-5.0 MMOL/L Chloride Level 104 98-107 MMOL/L Carbon Dioxide Level 23 21-32 MMOL/L Anion Gap 10 5-14 MMOL/L Blood Urea Nitrogen 6 L 7-18 MG/DL Creatinine 0.64 0.60-1.30 MG/DL Estimat Glomerular Filtration Rate > 60 BUN/Creatinine Ratio 9 Glucose Level 83 70-105 MG/DL Calcium Level 10.1 8.5-10.1 MG/DL Magnesium Level 1.9 1.6-2.4 MG/DL Urine Color YELLOW Urine Clarity CLEAR Urine pH 5 5-9 Urine Specific [place] 1.030 H 1.016-1.022 Urine Protein 1+ H NEGATIVE Urine Glucose (UA) NEGATIVE NEGATIVE Urine Ketones 2+ H NEGATIVE Urine Nitrite NEGATIVE NEGATIVE Urine Bilirubin NEGATIVE NEGATIVE Urine Urobilinogen NORMAL NORMAL MG/DL Urine Leukocyte Esterase 1+ H NEGATIVE Urine RBC (Auto) 3+ H NEGATIVE Urine RBC 10-25 H /HPF Urine WBC 2-5 /HPF Urine Squamous Epithelial Cells TNTC H /HPF Urine Crystals NONE /LPF Urine Bacteria TRACE /HPF Urine Casts NONE /LPF Urine Mucus NEGATIVE /LPF Urine Culture Indicated NO My Orders Orders - ANIBAL SAMUELS MD Ua Culture If Indicated (03/20/19 18:05) Basic Metabolic Panel (03/20/19 18:49) Magnesium (03/20/19 18:49) Ed Iv/Invasive Line Start (03/20/19 18:49) Lactated Ringers (Lr 1000 Ml Iv Solution (03/20/19 18:49) Promethazine Injection (Phenergan Injec (03/20/19 19:00) Diphenhydramine Tablet (Benadryl Tablet) (03/20/19 20:00) Medications Given in ED Vital Signs/I&O Capillary Refill : Less Than 3 Seconds Blood Pressure Mean: 84 Progress Note : Progress Note BMP was unremarkable. Urine was concentrated with ketones suggesting early hypovolemia. Patient was treated with a liter of LR, Phenergan, and Benadryl with good improvement. heart tones were reassuring. Departure Impression Primary Impression: Abdominal cramping affecting Additional Impressions: Hypovolemia Nausea and vomiting Qualified Codes: R11.2 - Nausea with vomiting, unspecified Disposition: 01 HOME, SELF-CARE Condition: Improved Departure-Patient Inst. Decision time for Depature: 19:56 Referrals: TARA JUAREZ MD (PCP/Family) Primary Care Physician Patient Instructions: Acute Pelvic Pain Add. Discharge Instructions: Drink plenty of clear liquids. To manage nausea you may continue using promethazine as prescribed. Eat small quantities of bland foods often to help prevent nausea. Eat a well-balanced healthy diet with healthy snacks. For discomfort and cramping you may take Tylenol (acetaminophen) up to 1000 mg every 6 hours as needed and/or Benadryl (diphenhydramine) 25-50 mg every 4 hours as needed. If symptoms worsen or you develop new symptoms such as fever, vaginal bleeding, etc. please return to the emergency room. Otherwise, follow-up with your primary obstetrical provider within the next week. All discharge instructions reviewed with patient and/or family. Voiced understanding. Copy Copies To 1: TARA JUAREZ MD, JOSHUA T MD Mar 20, 2019 19:59
[2019-03-20] MEDS ORDERED: diphenhydrAMINE 25 MG TAB (BENADRYL) PO ONE (20:00)
[2019-03-20 20:05] VITALS: BP 100/35
== END 2019-03-20 20:07 | disposition home or self-care (01) ==
LOC: EDUNIT# 16:16 → ER 16:18
DX: O26.892 Other specified pregnancy related conditions, second trimester (principal); R10.9 Unspecified abdominal pain; O99.282 Endocrine, nutritional and metabolic diseases complicating pregnancy, second trimester; E86.1 Hypovolemia; O21.0 Mild hyperemesis gravidarum; O16.2 Unspecified maternal hypertension, second trimester; O99.412 Diseases of the circulatory system complicating pregnancy, second trimester; E78.00 Pure hypercholesterolemia, unspecified; O24.312 Unspecified pre-existing diabetes mellitus in pregnancy, second trimester; E11.40 Type 2 diabetes mellitus with diabetic neuropathy, unspecified; O99.352 Diseases of the nervous system complicating pregnancy, second trimester; G40.909 Epilepsy, unspecified, not intractable, without status epilepticus; O99.342 Other mental disorders complicating pregnancy, second trimester; F41.9 Anxiety disorder, unspecified; F32.9 Major depressive disorder, single episode, unspecified; O99.612 Diseases of the digestive system complicating pregnancy, second trimester; K21.9 Gastro-esophageal reflux disease without esophagitis; Z3A.16 16 weeks gestation of pregnancy; Z88.8 Allergy status to other drugs, medicaments and biological substances; Z88.6 Allergy status to analgesic agent; Z87.440 Personal history of urinary (tract) infections; Z88.5 Allergy status to narcotic agent; Z79.84 Long term (current) use of oral hypoglycemic drugs; Z87.891 Personal history of nicotine dependence; Z77.22 Contact with and (suspected) exposure to environmental tobacco smoke (acute) (chronic)
CPT/HCPCS: 36415; 80048; 81000; 83735; 96361; 96374

== ENCOUNTER → 2019-05-18 | Outpatient (CLI) | payer MEDICAID ==
--- NOTE | 2019-05-18 17:13 | Diagnostic Imaging Report ---
INDICATION: Anatomic survey. TECHNIQUE: Multiple real-time grayscale images were obtained over the gravid uterus. COMPARISON: None FINDINGS: Examination is significantly limited secondary to patient body habitus and advanced gestational age. A single live intrauterine gestation is identified in a breech presentation. The cervix is closed measuring 4.7 cm. Placenta is posteriorly located without evidence of placenta previa. cardiac motion is documented at 158 BPM. Amniotic fluid is subjectively within normal limits. Evaluation of anatomy is significantly limited. In particular, intracranial contents and spine are not optimally visualized. The four-chamber heart and kidneys are also not optimally visualized. The urinary bladder and three-vessel cord are unremarkable. biometrics are symmetric. They are consistent with an estimated gestational age of 25 weeks and 3 days. Therefore, there is an estimated due date based upon this examination of August 28, 2019. Findings are consistent with clinical dating. Biometrical measurements are as follows: Biparietal 6.21 cm, age 25 weeks 2 days. Head circumference 22.87 cm, age 25 weeks 0 days. Abdominal circumference 21.17 cm, age 25 weeks 5 days. Femur length 4.63 cm, age 25 weeks 3 days. Sonographic estimate age: 25 weeks 3 days. Sonographic estimated date of delivery: 08/28/2019. Estimated Weight: 815 gm (+/- 119 gm). LMP percentile: 81%. heart rate: 158 beats per minute. number: 1 of 1. Maternal ovaries were not visualized secondary to the gravid uterus. IMPRESSION: 1. Significantly limited examination secondary to lie and patient body habitus. 2. Single live intrauterine gestation in a breech presentation with an estimated gestational age of 25 weeks and 3 days. Therefore, there is an estimated due date based upon this examination of August 28, 2019. Findings are consistent with clinical dating. 3. No definite anomaly, though evaluation of anatomic structures is severely limited. In particular, the intracranial contents, spine, four-chamber heart, and kidneys are not well visualized. Dictated by: Dictated on workstation # [id number]
== END ==
LOC: RAD 14:30
PROVIDERS: ATTEND Family Medicine
DX: Z36.89 Encounter for other specified antenatal screening (principal); Z3A.25 25 weeks gestation of pregnancy
CPT/HCPCS: 76805

== ENCOUNTER → 2019-06-08 | Outpatient (CLI) | payer MEDICAID ==
[~2019-06-08] MED LIST changes: +OMEP-280 PO; -OMEP20CA13 PO
--- NOTE | 2019-06-08 12:04 | Diagnostic Imaging Report ---
INDICATION: Followup anatomy that was not visualized previously. TECHNIQUE: Multiple Real-time grayscale images were obtained over the gravid uterus. COMPARISON: 05/18/2019. FINDINGS: There is a single live fetus in a cephalic presentation. The heart rate was recorded at 130 BPM. The placenta is posterior. The amniotic fluid volume appears normal. The head as well as four-chamber heart views were visualized today. The kidneys and spine continue to be poorly visualized. The study is somewhat limited due to maternal body habitus. IMPRESSION: Limited evaluation of the kidneys and spine. Dictated by: Dictated on workstation # [id number]
== END ==
LOC: RAD 09:49
PROVIDERS: ATTEND Family Medicine
DX: Z34.92 Encounter for supervision of normal pregnancy, unspecified, second trimester (principal); Z3A.00 Weeks of gestation of pregnancy not specified
CPT/HCPCS: 76816

== ENCOUNTER 2019-06-23 14:47 | Outpatient (CLI) | payer MEDICAID ==
[~2019-06-23] VITALS: Ht 168 cm; Wt 158.0 kg
--- NOTE | 2019-06-23 14:55 | NUR ---
MELISSA NAQVI presented to unit via stretcher from EMS, accompanied by S.O. and EMS staff, with c/o CONTRACTIONS. MELISSA NAQVI weighed, gowned, voided, and to bed. EFHM and TOCO applied, VS taken. MELISSA NAQVI oriented to bed controls, call light, TV, heat, and A/C controls.
--- NOTE | 2019-06-23 15:25 | NUR ---
Nitrazine swab collected, equivical findings noted. Fern test collected and taken to lab.
[2019-06-23 15:28] LABS: BILIRUBIN,URINE NEGATIVE (NEGATIVE); CLARITY,URINE SL CLOUDY; COLOR,URINE YELLOW; GLUCOSE, URINE (UA) NEGATIVE (NEGATIVE); KETONES,URINE NEGATIVE (NEGATIVE); LEUKOCYTE ESTERASE ,URINE NEGATIVE (NEGATIVE); NITRITE,URINE NEGATIVE (NEGATIVE); PH,URINE 6.5 (5-9); PROTEIN,URINE TRACE (NEGATIVE)
[2019-06-23 15:30] VITALS: BP 117/49
[2019-06-23 15:38] LABS: BACTERIA,URINE NEGATIVE /HPF; CALCIUM OXALATE CRYSTALS,UR LARGE /LPF
--- NOTE | 2019-06-23 16:05 | NUR ---
Dr Jean-Baptiste called and notified of pt arrival. Pt 29.5weeks gestation based on due date provided. Pt arrived to unit via EMS with c/o cramping and contractions since 1000 this am. notified pt - RCS, other pertinent history. Pt report of loose BM this AM. notified of VS, UA, nitrazine, fern test, ctx pattern, FHR status, and other assessment findings. Order rec'd for pt to drink large glass of water and dismiss home Addendum: 06/23/19 at 1718 by XIOMARA GIORDANO RN Ice water provided to pt at this time.
--- NOTE | 2019-06-23 16:55 | NUR ---
Discharge instructions explained to pt with copy provided to pt. Pt verbalizes understanding of teaching and signs to verify. Pt ambulates off unit to private vehicle accompanied by S.O. No s/s of distress noted.
--- NOTE | 2019-06-24 10:36 | Physician Query-Final Dx ---
Clinic Account Progress/Dx Physician Query: Please give diagnosis Please include # weeks gestation Date of Service Jun 23, 2019 at 14:47 JUAN IBARRA Jun 24, 2019 10:36
== END 2019-06-23 16:55 | disposition home or self-care (01) ==
LOC: WSo 14:47 → LDRP 14:47 → WSo 16:55
PROVIDERS: ATTEND Family Medicine
DX: Z34.90 Encounter for supervision of normal pregnancy, unspecified, unspecified trimester (principal); Z3A.00 Weeks of gestation of pregnancy not specified
CPT/HCPCS: 36415; 81000; 89060; 99214

== ENCOUNTER 2019-07-09 13:24 | Outpatient (CLI) | payer MEDICAID ==
[~2019-07-09] VITALS: Ht 167 cm; Wt 159.8 kg
--- NOTE | 2019-07-09 13:15 | NUR ---
MELISSA NAQVI presented to unit via ambulation from radiology, accompanied by s.o. and family , with c/o PRESSURE, SHARP ABD PAIN. MELISSA NAQVI weighed, gowned, voided, and to bed. EFHM and TOCO applied, VS taken. MELISSA NAQVI oriented to bed controls, call light, TV, heat, and A/C controls.
[2019-07-09 13:30] VITALS: BP 107/57
[2019-07-09 13:45] VITALS: BP 107/57
[2019-07-09 13:58] LABS: BILIRUBIN,URINE NEGATIVE (NEGATIVE); CLARITY,URINE CLEAR; COLOR,URINE AMBER; GLUCOSE, URINE (UA) NEGATIVE (NEGATIVE); KETONES,URINE NEGATIVE (NEGATIVE); LEUKOCYTE ESTERASE ,URINE NEGATIVE (NEGATIVE); NITRITE,URINE NEGATIVE (NEGATIVE); PROTEIN,URINE TRACE (NEGATIVE)
[2019-07-09 14:10] LABS: BACTERIA,URINE FEW /HPF; SQUAMOUS EPITHELIAL CELL,UR 25-50 /HPF
--- NOTE | 2019-07-09 14:59 | NUR ---
Dr Markham called and notified of pt arrival to unit after appt with Dr De La Rosa this am and sonogram. Pt history reported to Dr and c/o pressure and sharp abdominal pains. notified of tracing, and that EFM is very difficult d/t maternal habitus. VS, UA, other assessment findings reported to . Order to orally hydrate and give tylenol. If relief from pain, pt may go home.
[2019-07-09] MEDS ORDERED: ACETAMINOPHEN 500 MG TAB (TYLENOL) PO ONE (15:00)
--- NOTE | 2019-07-09 15:50 | NUR ---
Discharge instructions explained to pt with copy provided. Encouraged stretching and hydration. Pt verbalizes understanding of teaching and signs to verify. Liam further questions or concerns at this time. Pt ambulates off unit accompanied by S.O. to private vehicle with all personal belongings. No s/s of distress noted.
--- NOTE | 2019-07-10 08:29 | Physician Query-Final Dx ---
JUAN IBARRA 07/10/19 0829: Clinic Account Progress/Dx Physician Query: Please give diagnosis Please include # weeks gestation Date of Service Jul 09, 2019 at 13:24 RENY MONTANEZ DO 07/10/19 1553: Clinic Account Progress/Dx DIAGNOSIS: Diagnosis 32 wk GA abdominal pain JUAN IBARRA Jul 10, 2019 08:29 RENY MONTANEZ DO Jul 10, 2019 15:53
== END 2019-07-09 15:50 | disposition home or self-care (01) ==
LOC: WSo 13:24 → LDRP 13:26 → WSo 15:50
PROVIDERS: ATTEND Family Medicine
DX: O99.89 Other specified diseases and conditions complicating pregnancy, childbirth and the puerperium (principal); R10.9 Unspecified abdominal pain; Z3A.32 32 weeks gestation of pregnancy
CPT/HCPCS: 81000

== ENCOUNTER → 2019-07-09 | Outpatient (CLI) | payer MEDICAID ==
--- NOTE | 2019-07-09 13:38 | Diagnostic Imaging Report ---
INDICATION: Follow-up survey. TECHNIQUE: Multiple real-time grayscale images were obtained over the gravid uterus. COMPARISON: None 05/18/2019 and 06/08/2019. FINDINGS: The previous OB ultrasound exam of 06/08/2019 noted a single live fetus. There were no abnormalities identified but the kidneys and spine were not well imaged. On this exam, the fetus is again visualized. The fetus is cephalic in presentation and heart motion was noted and a rate of 138 BPM is recorded. The spine was identified and appears to be within normal limits. The kidneys could not be clearly visualized however. I feel this is most likely due to the patient's body habitus. There is no obvious abnormality evident. If further evaluation of the kidneys desired, then transvaginal imaging should be considered. No other abnormalities identified. The placenta is posterior and intact. The amniotic fluid volume appears to be within normal limits. The growth parameters are not obtained for this study. Biometrical measurements are as follows: Biparietal cm, age weeks days. Head circumference cm, age weeks days. Abdominal circumference cm, age weeks days. Femur length cm, age weeks days. Sonographic estimate age: weeks days. Sonographic estimated date of delivery: . Estimated Weight: gm (+/- gm). LMP percentile: %. heart rate: beats per minute. number: of . IMPRESSION: 1. There is a single live fetus in cephalic presentation. 2. The spine appears to be within normal limits but the kidneys were not well-visualized. Additional considerations as above. 3. These results were discussed with Dr. Juliet De La Rosa. Dictated by: Dictated on workstation # [id number]
== END ==
LOC: RAD 12:33
PROVIDERS: ATTEND Family Medicine
DX: Z34.93 Encounter for supervision of normal pregnancy, unspecified, third trimester (principal)
CPT/HCPCS: 76816

== ENCOUNTER 2019-08-07 12:03 | Outpatient (CLI) | payer MEDICAID ==
[~2019-08-07] VITALS: Ht 168 cm; Wt 164.1 kg
[~2019-08-07 12:03] MED LIST changes: -OMEP-280 PO; +OMEP20CA18 PO
[2019-08-07] MEDS ORDERED: PNV1TABL81 PO (12:26)
== END 2019-08-07 12:31 | disposition home or self-care (01) ==
LOC: PREOP 12:03
PROVIDERS: ATTEND Obstetrics & Gynecology
DX: Z01.818 Encounter for other preprocedural examination (principal)

== ENCOUNTER 2019-08-11 11:57 | Outpatient (CLI) | payer MEDICAID ==
[~2019-08-11] VITALS: Ht 167.7 cm; Wt 164.7 kg
[2019-08-11 11:57] VITALS: BP 129/86
[~2019-08-11 11:57] MED LIST changes: +PNV1TABL81 PO
--- NOTE | 2019-08-11 11:57 | NUR ---
MELISSA NAQVI presented to unit from home, accompanied by Significant Other, with c/o MIGRAINE. MELISSA NAQVI weighed, gowned, voided, and to bed. EFHM and TOCO applied, VS taken. MELISSA NAQVI oriented to bed controls, call light, TV, heat, and A/C controls.
[2019-08-11 12:04] VITALS: BP 129/86
--- NOTE | 2019-08-11 12:33 | NUR ---
Dr. Travis notified of patients arrival and complaints. New orders received.
[2019-08-11 12:39] LABS: BILIRUBIN,URINE NEGATIVE (NEGATIVE); CLARITY,URINE CLEAR; COLOR,URINE YELLOW; GLUCOSE, URINE (UA) NEGATIVE (NEGATIVE); KETONES,URINE NEGATIVE (NEGATIVE); LEUKOCYTE ESTERASE ,URINE NEGATIVE (NEGATIVE); NITRITE,URINE NEGATIVE (NEGATIVE); PROTEIN,URINE NEGATIVE (NEGATIVE)
[2019-08-11 12:55] LABS: BACTERIA,URINE MODERATE /HPF; RBC,URINE RARE /HPF; WBC,URINE 0-2 /HPF
--- NOTE | 2019-08-11 13:31 | NUR ---
DISCHARGE PAPERS PROVIDED AND REVIEWED WITH PT, PT VERBALIZES UNDERSTANDING. QUESTIONS ANSWERED. PAPER SIGNED.
--- NOTE | 2019-08-11 13:33 | NUR ---
PT DISCHARGED FROM [facility] TO [facility]ORY IN STABLE CONDITION ACC BY S/O.
--- NOTE | 2019-08-12 08:10 | Physician Query-Final Dx ---
Clinic Account Progress/Dx Physician Query: Please give diagnosis Please include # weeks gestation Date of Service Aug 11, 2019 at 11:57 JUAN IBARRA Aug 12, 2019 08:10
== END 2019-08-11 13:33 | disposition home or self-care (01) ==
LOC: WSo 11:57 → LDRP 11:57 → WSo 13:33
PROVIDERS: ATTEND Family Medicine
DX: O26.893 Other specified pregnancy related conditions, third trimester (principal); G43.909 Migraine, unspecified, not intractable, without status migrainosus; Z3A.36 36 weeks gestation of pregnancy
CPT/HCPCS: 81000; 87088; 99212

== ENCOUNTER 2019-08-31 05:51 | Inpatient (IN) | payer MEDICAID ==
[2019-08-31] VITALS (12 sets, daily range): BP systolic 106–127; BP diastolic 48–75
[~2019-08-31] VITALS: Ht 167.7 cm; Wt 168.4 kg
[~2019-08-31 05:51] MED LIST changes: +AMPICILLIN FOR IV USE 1,000 MG/VIAL ONE; +CITRIC ACID/SOB CIT (BICITRA) 30 ML UDC ONE; +FAMOTIDINE 20MG/2ML IV (PEPCID) ONE; +LACTATED RINGERS 1,000 ML IV ONE; +METOCLOPRAMIDE INJ 10 MG/2 ML (REGLAN) ONE; +WATER (STERILE) FOR INJECTION 10 ML ONE; +metroNIDAZOLE 500MG/100ML IVPB 100 ML ONE
--- NOTE | 2019-08-31 06:00 | NUR ---
MELISSA NAQVI presented to unit via ambulation from home/ED, accompanied by SO, for REPEAT . MELISSA NAQVI weighed, gowned, voided, and to bed. EFHM and TOCO applied, VS taken. MELISSA NAQVI oriented to bed controls, call light, TV, heat, and A/C controls.
[2019-08-31] MEDS: LACTATED RINGERS 1,000 ML IV PRN ×3 (06:25→08:52)
[2019-08-31] MEDS ORDERED: ceFAZolin INJECTION 1,000 MG in WATER (STERILE) FOR INJECTION 10 ML IV ONE (06:30)
[2019-08-31] MEDS ORDERED: metroNIDAZOLE 500MG/100ML IVPB 100 ML IV ONE ×2 (06:30→10:45)
[2019-08-31] MEDS ORDERED: LACTATED RINGERS 1,000 ML IV PRN (06:32)
[2019-08-31] MEDS ORDERED: FAMOTIDINE 20MG/2ML IV (PEPCID) IV ONE (06:45)
[2019-08-31] MEDS ORDERED: METOCLOPRAMIDE INJ 10 MG/2 ML (REGLAN) IV ONE (06:45)
[2019-08-31] MEDS ORDERED: CITRIC ACID/SOB CIT (BICITRA) 30 ML UDC PO ONE (06:45)
[2019-08-31 06:53] LABS: BASOPHILS % (AUTO) 0 % (0-10); EOSINOPHILS # (AUTO) 0.1 10^3/uL (0.0-0.3); EOSINOPHILS % (AUTO) 0 % (0-10); HEMATOCRIT 36 % (35-52); HEMOGLOBIN 11.6 G/DL (11.5-16.0); LYMPHOCYTES # (AUTO) 2.8 X 10^3 (1.0-4.0); LYMPHOCYTES % (AUTO) 15 % (12-44); MEAN CORPUSCULAR HEMOGLOBIN 27 PG (25-34); MEAN CORPUSCULAR HGB CONC 32 G/DL (32-36); MEAN CORPUSCULAR VOLUME 85 FL (80-99); MEAN PLATELET VOLUME 10.6 FL (7.4-10.4); MONOCYTES # (AUTO) 1.1 X 10^3 (0.0-1.0); MONOCYTES % (AUTO) 6 % (0-12); NEUTROPHILS # (AUTO) 14.3 X 10^3 (1.8-7.8); NEUTROPHILS % (AUTO) 78 % (42-75); PLATELET COUNT 316 10^3/uL (130-400); RED CELL DISTRIBUTION WIDTH 16.1 % (10.0-14.5); WHITE BLOOD COUNT 18.3 10^3/uL (4.3-11.0)
[2019-08-31] MEDS ORDERED: SEVOFLURANE (ULTANE) 15 ML INHAL SOLN ONE ×2 (07:07→09:28)
[2019-08-31] MEDS ORDERED: proPOfol 200 MG/20 ML (DIPRIVAN) VIAL IV ONE ×2 (07:07)
[2019-08-31] MEDS ORDERED: NEOSTIGMINE 3 MG/3 ML VIAL ONE (07:07)
[2019-08-31] MEDS ORDERED: SUCCINYLCHOLINE INJ 100 MG/5 ML SYR ONE (07:07)
[2019-08-31] MEDS ORDERED: LIDOCAINE PF 2% 5 ML (XYLOCAINE) VIAL ONE (07:07)
[2019-08-31] MEDS ORDERED: ROCURONIUM 10 MG/ML 5 ML SYRINGE IV ONE (07:07)
[2019-08-31] MEDS ORDERED: fentaNYL INJECTION 100 MCG/2 ML AMP ONE ×2 (07:07→08:48)
[2019-08-31] MEDS ORDERED: ONDANSETRON 4 MG/2 ML (SDV) Z0FRAN ONE ×2 (07:07→08:51)
[2019-08-31] MEDS ORDERED: GLYCOPYRROLATE 0.2 MG/ML (ROBINUL) 2 ML VIAL ONE (07:07)
--- NOTE | 2019-08-31 07:09 | History & Physical-OB ---
OB - Chief Complaint & HPI Date/Time Date of Admission: Date of Admission: Aug 31, 2019 at 05:51 Date seen by a Provider: Aug 31, 2019 Time Seen by a Provider: 06:45 Chief Complaint/History OB-Reason for Admission/Chief: Section Hx : 3 Hx Para: 2 Expected Date of Delivery: Sep 03, 2019 Gestational Age in Weeks: 39 Gestational Age in Days: 4 Indication for : desires repeat , other (history of previous section x 2. History of lumbar shunt. Requesting general anesthesia.) Other reason for admission: Morbid obesity. BMI 60. Admission Nurse Assessment Rev: Yes History of Labs A+/- rub I VDRL NR HbSAg - HIV - GBS + Allergies and Home Medications Allergies Coded Allergies: cinnamon (Verified Allergy, Severe, ANAPHYLAXIS, 11/15/16) hydroxyzine (Verified Allergy, Severe, SUICIDAL, 11/15/16) pregabalin (Verified Allergy, Severe, SUICIDAL, 11/15/16) acetazolamide (Verified Allergy, Intermediate, SWELLING, 11/15/16) ketorolac (Verified Allergy, Intermediate, SHAKING, 11/15/16) tramadol (Verified Allergy, Intermediate, SHAKING, 11/15/16) latex (Verified Allergy, Unknown, 11/15/16) paroxetine (Verified Allergy, Unknown, 11/15/16) Home Medications Omeprazole 20 Mg Capsule.dr, 20 MG PO DAILY, (Reported) Pnv No.122/Iron/Folic Acid 1 Each Tablet, 1 EACH PO DAILY, (Reported) Patient Home Medication List Home Medication List Reviewed: Yes OB - History Hx of Present Ultrasounds: Normal mid trimester US Obstetrical Complications: None, Other (see previous history) Medical Complications: None, Other (see previous history) Information Induced Hypertension: Yes (preeclampsia with first ) Maternal Gestational Diabetes: No Hemorrhage: No Obstetrical History Hx : 3 Hx Para: 2 Hx # Term Pregnancies: 2 Hx # Pregnancies: 0 Number of Living Children: 2 Hx Multiple Gestation: No Hx Ectopic : No Hx Stillbirth: No Hx Complication: No Hx Induced Hypertens: Yes Hx Maternal Gestational Diabet: No Hx Hemorrhage: No Delivery History Hx Dystocia: Yes Hx Forceps Assisted Delivery: No Hx Vacuum Extraction Assisted: No Hx Section: Yes (2) Hx Blood Disorders: No Adverse Rxn to Tranfusion: No Patient Past Medical History Pseudotumor cerebri requiring shunt. she has required general anesthesia due to this being placed in the lower lumbar region. Social History/Family History HIV/AIDS: No Recent Infectious Disease Expo: No Sexually Transmitted Disease: No Alcohol Use: Denies Use Recreational Drug Use: No 2nd Hand Smoke Exposure: Yes Immunizations Hepatitis A: No Hepatitis B: No Tetanus Booster (TDap): Less than 5yrs Date of Influenza Vaccine: Mar 16, 2019 Rubella: immune RPR/VDRL: Negative GBS Status: Positive HBsAG: Negative OB - Admission Exam Physical Exam Vitals: Vital Signs 08/31/19 06:13 Temp 36.3 Pulse 99 Resp 22 Pulse Ox 98 O2 Delivery Room Air HEENT: NCAT Heart: Rhythm Normal Lungs: Clear Abdomen: Gravid Extremities: Edema (3+) Cervical Dilatation: other (declined) Heart Rate: 150's Accelerations: Accelerations Present Decelerations: No Decelerations Short Term Variability: Present Senior Sales Manager Variability: Average (6-25) Contractions on Admission: 6-10 Minutes Apart Labs Laboratory Tests Test 08/31/19 06:40 Range/Units White Blood Count 18.3 H 4.3-11.0 10^3/uL Red Blood Count 4.26 L 4.35-5.85 10^6/uL Hemoglobin 11.6 11.5-16.0 G/DL Hematocrit 36 35-52 % Mean Corpuscular Volume 85 80-99 FL Mean Corpuscular Hemoglobin 27 25-34 PG Mean Corpuscular Hemoglobin Concent 32 32-36 G/DL Red Cell Distribution Width 16.1 H 10.0-14.5 % Platelet Count 316 130-400 10^3/uL Mean Platelet Volume 10.6 H 7.4-10.4 FL Neutrophils (%) (Auto) 78 H 42-75 % Lymphocytes (%) (Auto) 15 12-44 % Monocytes (%) (Auto) 6 0-12 % Eosinophils (%) (Auto) 0 0-10 % Basophils (%) (Auto) 0 0-10 % Neutrophils # (Auto) 14.3 H 1.8-7.8 X 10^3 Lymphocytes # (Auto) 2.8 1.0-4.0 X 10^3 Monocytes # (Auto) 1.1 H 0.0-1.0 X 10^3 Eosinophils # (Auto) 0.1 0.0-0.3 10^3/uL Basophils # (Auto) 0.0 0.0-0.1 10^3/uL OB - Assessment/Plan/Diagnosis Assessment Assessment: section Admission Dx Previous section Morbid obesity history of lumbar shunt GBS + Admission Status: Inpatient Order (span 2 midnights) Reason for Inpatient Admission: section Plan Plan: Section (Plan repeat section. she had previous under general due to shunt. We have discussed epidural vs repeat general I have tried on numerous occasions to obtain her previous records and have been unable to. So the shunt procedure has been unavailable. She states, however, she has had multiple LP and procedures and refuses epidural. Discussed that this could be used for post operative pain managment, and she still adamently declines due to previous anxiety related to the procedure. Will plan RLTCS under general. Risks of procedure, including bleeding, infection, injury to bowel, bladder and ureter, anesthesia risks, DVT/PE, etc have been explained. She under stands the risks and consents have been signed. Prophylactic antibiotics and SCDs. ) DIONICIO OBRIEN DO Aug 31, 2019 07:08
[2019-08-31 07:39] LABS: ANISOCYTOSIS SLIGHT; LYMPHOCYTES % (MANUAL) 16 %; MONOCYTES % (MANUAL) 11 %; NEUTROPHILS % (MANUAL) 73 %; SPHEROCYTES SLIGHT
[2019-08-31] MEDS: OXYTOCIN PRE-MIX DRIP 1,000 ML IV ONE ×2 (08:15→10:34)
[2019-08-31] MEDS: OXYTOCIN PRE-MIX DRIP 500 ML IV SCH ×2 (08:30→10:16)
[2019-08-31] MEDS ORDERED: morphine INJ 10 MG/ML 1ML (SYR OR VIAL) ONE (08:53)
--- NOTE | 2019-08-31 09:09 | Cesarean Section Operative ---
Procedure Procedure Note Pre-operative Diagnosis: Mary Plummer is a 28 /Para 3 / 2, Gestational Age 39 4/7 weeks, history of previous section, history of lumbar shunt declining regional anesthesia, BMI 60. Post-operative Diagnosis: same Procedure: Repeat low transverse section Physician: DIONICIO OBRIEN Estimated blood loss: 1000 mL Disposition: stable Findings: Viable male , Apgars 8/8, weight 8#1ounce, intact placenta, 3vc, normal appearing uterus, tubes, and ovaries. Indications:Mary Plummer is a 28 /Para 3 / 2,Gestational Age (39 4/7 weeks, history of previous section, history of lumbar shunt declining regional anesthesia, BMI 60.. Procedure Details: The patient was seen in pre-op and the procedure was discussed with the patient in full, including the risks, benefits, and alternatives. All questions were answered. The patient was taken to the operating room and a time out was performed, verifying patient and procedure. Due to the previous history of a lumbar shunt, she declined regional anesthesia. Instead general anesthesia was offered. After general anesthesia was placed by our anesthesia colleagues, the patient was placed in the dorsal supine with leftward tilt for uterine displacement.~ Her abdomen was then prepped and draped in the typical sterile fashion. A Pfannenstiel skin incision was made through the previous scar using a scalpel and carried down through the underlying fascia. The fascia was incised in the midline and tented up using Madelaine clamps. On both the inferior and superior fascia side the rectus muscle was dissected off bluntly and sharply using Severino scissors. The peritoneum was identified and entered bluntly in the midline. This was then stretched laterally using manual strength. After entering the abdominal cavity and confirming lack of intraperitoneal adhesions, a large Wally retractor was placed and the lower uterine segment was visualized. The head was not engaged in the pelvis. the bladder was advanced over the lower uterine segment. A bladder flap was created with the use of Metzenbaum scissors taking down the advanced peritoneum.~ A scalpel was utilized to make a low transverse uterine incision. Amniotomy was performed with an Allis clamp with return of clear fluid. The 's head was grasped and brought to the level of the incision. A silastic suction was applied to the head to assist in the delivery of the fetus. Fundal pressure was applied and infant was delivered without difficulty. Mouth and nares were suctioned with bulb suction. After the umbilical cord was clamped and cut, the was handed off to the pediatric staff. A sample of cord blood was then obtained. The placenta was delivered intact via uterine massage. The uterus was cleared of all clots and debris. The uterine incision was closed using 0 Vicryl in a running locked fashion. A second imbricated layer was placed using 0 Vicryl in a running fashion as well. The uterus was flexed forward and the posterior rectout erine space was inspected and cleared of all clots and debris. Again the hysterotomy site was examined and hemostasis was observed. The bilateral tubes and ovaries appeared normal. The abdominal gutters were cleared of all clots and debris. A final check of the uterine incision showed it to be hemostatic. The peritoneum was closed using 3-0 Vicryl in a running fashion. The rectus muscles were noted to be quite scarred and I attempted to reapproximate these muscles, but, due to tension, this could not be done easily without tearing. The fascia was closed with 1 PDS in a running fashion. The subcutaneous space was hemostatic, and irrigated. The subcutaneous space was closed with 3-0 Plain in several single interrupted stitches. The skin was then closed using 4-0 Monocryl in a running subcuticular fashion. The skin edges were reapproximated together and were hemostatic. A pressure dressing was applied. All sponge, lap and needle counts were correct at the end of the procedure per nursing. Ancef and Flagyl were ordered to be given prior to initial incision. However, it was determined that the Ancef that was ordered was not given but Ampicillin was given instead. She will be given Ancef post operatively to prevent incisional infection. Vitals - Labs Vital Signs - I&O Vital Signs Date Time Temp Pulse Resp B/P (MAP) Pulse Ox O2 Delivery O2 Flow Rate FiO2 08/31/19 06:13 36.3 99 22 98 Room Air Labs Laboratory Tests 08/31/19 06:40: White Blood Count 18.3H, Red Blood Count 4.26L, Hemoglobin 11.6, Hematocrit 36, Mean Corpuscular Volume 85, Mean Corpuscular Hemoglobin 27, Mean Corpuscular Hemoglobin Concent 32, Red Cell Distribution Width 16.1H, Platelet Count 316, Mean Platelet Volume 10.6H, Neutrophils (%) (Auto) 78H, Lymphocytes (%) (Auto) 15, Monocytes (%) (Auto) 6, Eosinophils (%) (Auto) 0, Basophils (%) (Auto) 0, Neutrophils # (Auto) 14.3H, Lymphocytes # (Auto) 2.8, Monocytes # (Auto) 1.1H, Eosinophils # (Auto) 0.1, Basophils # (Auto) 0.0, Neutrophils % (Manual) 73, Lymphocytes % (Manual) 16, Monocytes % (Manual) 11, Anisocytosis SLIGHT, Spheroc ytes SLIGHT DIONICIO OBRIEN DO Aug 31, 2019 09:09
[2019-08-31] MEDS ORDERED: ONDANSETRON 4 MG/2 ML (SDV) Z0FRAN IVP PRN (09:15)
[2019-08-31] MEDS ORDERED: MEASLES,MUMPS,RUBELLA 1 EA INJ SC SCH (09:15)
[2019-08-31] MEDS ORDERED: morphine INJ 4 MG/ML 1 ML (VIAL/SYRINGE) IV PRN (09:15)
[2019-08-31] MEDS ORDERED: TETANUS,DIPTH,PERTUSS P/F (BOOSTRIX) 0.5 ML VIAL IM SCH (09:15)
[2019-08-31] MEDS ORDERED: ceFAZolin 2 GM IV Premixed 50 ML IV ONE (09:15)
[2019-08-31] MEDS: HYDROmorphone 2 MG/ML VIAL (DILAUDID) ONE ×2 (09:27→09:45)
[2019-08-31] MEDS ORDERED: BUPIVACAINE 0.5% 30 ML (SENSORCAINE) VIAL ONE (09:27)
--- NOTE | 2019-08-31 10:05 | NUR ---
1005 Pt moved to room 308 via bed,bedrails up x 4. IV infusing without difficulty. pt alert ad calm. oriented x 4. call light within reach. krupa to ramana. 1015 Received report from Clay Maher RN see nursing interventions.
[2019-08-31] MEDS: ENOXAPARIN 60 MG/0.6 ML (LOVENOX) SYR SC SCH ×2 (10:17→22:06)
[2019-08-31] MEDS: IBUPROFEN 600 MG (MOTRIN) TAB PO SCH ×2 (12:10→18:38)
[2019-08-31] MEDS: METOCLOPRAMIDE 10 MG (REGLAN) TAB PO SCH ×2 (12:10→20:05)
[2019-08-31] MEDS ORDERED: IBUP-844 PO (12:40)
[2019-08-31] MEDS ORDERED: ACET-93 PO (12:40)
[2019-08-31] MEDS ORDERED: DCS100C PO (12:40)
[2019-08-31] MEDS ORDERED: OXC5T PO (12:40)
--- NOTE | 2019-08-31 12:42 | Short Stay Summary ---
Discharge Summary Hospital Course Was the Problem List Reviewed?: Yes Final Diagnosis: Previous section; BMI 60/morbid obesity; Hospital Course Date of Admission: Aug 31, 2019 at 05:51 Admission Diagnosis : Family Physician/Provider: Juliet De La Rosa MD Date of Discharge: 08/31/19 Discharge Diagnosis: [ ] Hospital Course: [ ] Labs and Pending Lab Test: Laboratory Tests 08/31/19 06:40: White Blood Count 18.3H, Red Blood Count 4.26L, Hemoglobin 11.6, Hematocrit 36, Mean Corpuscular Volume 85, Mean Corpuscular Hemoglobin 27, Mean Corpuscular Hemoglobin Concent 32, Red Cell Distribution Width 16.1H, Platelet Count 316, Mean Platelet Volume 10.6H, Neutrophils (%) (Auto) 78H, Lymphocytes (%) (Auto) 15, Monocytes (%) (Auto) 6, Eosinophils (%) (Auto) 0, Basophils (%) (Auto) 0, Neutrophils # (Auto) 14.3H, Lymphocytes # (Auto) 2.8, Monocytes # (Auto) 1.1H, Eosinophils # (Auto) 0.1, Basophils # (Auto) 0.0, Neutrophils % (Manual) 73, Lymphocytes % (Manual) 16, Monocytes % (Manual) 11, Anisocytosis SLIGHT, Spherocytes SLIGHT Home Meds Active Reported Multi Tablet (Pnv No.122/Iron/Folic Acid) 1 Each Tablet 1 Each PO DAILY Omeprazole 20 Mg Capsule.dr 20 Mg PO DAILY Discharge Instructions Discharge Diet: No Restrictions Activity as Tolerated: Yes Pneumonia Vaccine Order Indica: Yes Discharge Physical Examination Allergies: Coded Allergies: cinnamon (Verified Allergy, Severe, ANAPHYLAXIS, 11/15/16) hydroxyzine (Verified Allergy, Severe, SUICIDAL, 11/15/16) pregabalin (Verified Allergy, Severe, SUICIDAL, 11/15/16) acetazolamide (Verified Allergy, Intermediate, SWELLING, 11/15/16) ketorolac (Verified Allergy, Intermediate, SHAKING, 11/15/16) tramadol (Verified Allergy, Intermediate, SHAKING, 11/15/16) latex (Verified Allergy, Unknown, 11/15/16) paroxetine (Verified Allergy, Unknown, 11/15/16) Discharge Summary Date of Admission Aug 31, 2019 at 05:51 Date of Discharge Consults/Procedures Procedures Repeat section Discharge Diagnosis (1) Acute blood loss anemia Status: Acute (2) Pseudotumor cerebri syndrome Status: Chronic (3) BMI 60.0-69.9, adult Status: Chronic (4) 39 weeks gestation of Status: Resolved (5) Previous section complicating , with delivery Status: Resolved (6) Previous section Status: Resolved Clinical Quality Measures DVT/VTE Risk/Contraindication: Risk Factor Score Per Nursin RFS Level Per Nursing on Admit: 2=Moderate DIONICIO OBRIEN DO Aug 31, 2019 12:42
[2019-08-31] MEDS: CATHETER FLUSH 10 ML SYR IV SCH (14:11)
[2019-08-31] MEDS: ACETAMINOPHEN 500 MG TAB (TYLENOL) PO SCH ×2 (14:11→22:04)
--- NOTE | 2019-08-31 16:50 | NUR ---
Patient assisted up to restroom. + void noted. Pericare completed and clean pad placed. Patient ambulated back to bed without difficulty.
--- NOTE | 2019-08-31 17:00 | NUR ---
Oxycodone 5 mg PO given for patient's c/o pain rated 9/10. Fresh water provided.
--- NOTE | 2019-08-31 19:20 | NUR ---
Report to Eliel Spears RN.
[2019-08-31] MEDS: DOCUSATE SODIUM 100 MG (COLACE) CAP PO SCH (20:05)
[2019-09-01 00:50] VITALS: BP 109/59
[2019-09-01] MEDS: METOCLOPRAMIDE 10 MG (REGLAN) TAB PO SCH ×4 (00:51→17:58)
[2019-09-01] MEDS: IBUPROFEN 600 MG (MOTRIN) TAB PO SCH ×4 (00:51→17:58)
[2019-09-01 03:48] VITALS: BP 115/70
[2019-09-01] MEDS ORDERED: MILK OF MAGNESIA 400 MG/5 ML 30 ML UDC PO PRN (05:00)
[2019-09-01 05:26] LABS: BASOPHILS % (AUTO) 0 % (0-10); EOSINOPHILS % (AUTO) 0 % (0-10); HEMATOCRIT 29 % (35-52); HEMOGLOBIN 9.3 G/DL (11.5-16.0); LYMPHOCYTES # (AUTO) 2.2 X 10^3 (1.0-4.0); LYMPHOCYTES % (AUTO) 13 % (12-44); MEAN CORPUSCULAR HEMOGLOBIN 28 PG (25-34); MEAN CORPUSCULAR HGB CONC 32 G/DL (32-36); MEAN CORPUSCULAR VOLUME 86 FL (80-99); MEAN PLATELET VOLUME 10.6 FL (7.4-10.4); MONOCYTES % (AUTO) 6 % (0-12); NEUTROPHILS % (AUTO) 81 % (42-75); PLATELET COUNT 244 10^3/uL (130-400); WHITE BLOOD COUNT 17.3 10^3/uL (4.3-11.0)
[2019-09-01] MEDS: ACETAMINOPHEN 500 MG TAB (TYLENOL) PO SCH ×4 (06:35→22:09)
[2019-09-01 08:14] VITALS: BP 104/51
[2019-09-01] MEDS: DOCUSATE SODIUM 100 MG (COLACE) CAP PO SCH ×2 (08:15→20:38)
--- NOTE | 2019-09-01 09:41 | Postpartum Progress Note ---
Post Op Post-operative Day #1 s/p RLTCS Subjective: Patient is without complaints. Ambulating, voiding after gentile removed. Tolerating a regular diet without nausea or vomiting. Normal lochia. Pain is well controlled with oral pain medications. Passing flatus. [] feeding. [] Objective: Laboratory Tests Test 09/01/19 05:12 Range/Units White Blood Count 17.3 H 4.3-11.0 10^3/uL Red Blood Count 3.37 L 4.35-5.85 10^6/uL Hemoglobin 9.3 L 11.5-16.0 G/DL Hematocrit 29 L 35-52 % Mean Corpuscular Volume 86 80-99 FL Mean Corpuscular Hemoglobin 28 25-34 PG Mean Corpuscular Hemoglobin Concent 32 32-36 G/DL Red Cell Distribution Width 16.0 H 10.0-14.5 % Platelet Count 244 130-400 10^3/uL Mean Platelet Volume 10.6 H 7.4-10.4 FL Neutrophils (%) (Auto) 81 H 42-75 % Lymphocytes (%) (Auto) 13 12-44 % Monocytes (%) (Auto) 6 0-12 % Eosinophils (%) (Auto) 0 0-10 % Basophils (%) (Auto) 0 0-10 % Neutrophils # (Auto) 14.0 H 1.8-7.8 X 10^3 Lymphocytes # (Auto) 2.2 1.0-4.0 X 10^3 Monocytes # (Auto) 1.0 0.0-1.0 X 10^3 Eosinophils # (Auto) 0.0 0.0-0.3 10^3/uL Basophils # (Auto) 0.0 0.0-0.1 10^3/uL 09/01/19 09/01/19 09/01/19 09/01/19 00:50 03:48 08:00 08:14 Temp 36.3 36.3 36.4 Pulse 89 85 97 Resp 18 18 20 B/P (MAP) 109/59 (76) 115/70 (85) 104/51 (68) Pulse Ox 97 98 96 O2 Delivery Room Air 09/01/19 00:00 Intake Total 2200 ml Output Total 600 ml Balance 1600 ml Physical Exam: General - Alert and oriented, no apparent distress Abdomen - Soft, appropriately tender to palpation, non-distended, fundus firm at umbilicus Incision - clean, dry and intact; no erythema or induration, no drainage Extremities - no edema, negative Sean's bilaterally Assessment: 1. post-operative day # 1, status post RLTCS. Recovering well, hemodynamically stable 2. Acute blood loss anemia 3. Morbid obesity Plan: Routine post-operative care. Encourage breast feeding. Encourage ambulation. VTE prophylaxis: SCDs, lovenox Ferrous sulfate supplementation. Plan for discharge tomorrow Vitals - Labs Vital Signs - I&O Vital Signs Date Time Temp Pulse Resp B/P (MAP) Pulse Ox O2 Delivery O2 Flow Rate FiO2 09/01/19 08:14 36.4 97 20 104/51 (68) 96 09/01/19 08:00 Room Air 09/01/19 03:48 36.3 85 18 115/70 (85) 98 09/01/19 00:50 36.3 89 18 109/59 (76) 97 08/31/19 20:00 36.4 81 18 110/62 (78) 97 08/31/19 16:04 36.8 79 18 106/54 (71) 97 Room Air 08/31/19 12:20 36.3 82 16 127/75 (92) 97 Room Air 08/31/19 10:30 Room Air 08/31/19 10:30 95 Room Air 4.00 08/31/19 10:30 36.3 78 18 117/73 (88) 95 Room Air 08/31/19 10:15 Room Air 08/31/19 10:15 36.1 14 113/70 (84) 95 Room Air 08/31/19 10:10 14 113/70 (84) 95 Room Air 08/31/19 10:05 Room Air 08/31/19 10:00 14 117/69 (85) 96 Room Air 08/31/19 09:50 18 112/48 (69) 99 Room Air 08/31/19 09:50 Room Air 08/31/19 09:40 20 112/51 (71) 99 Nasal Cannula 4 I & O 09/01/19 07:00 Intake Total 6350 ml Output Total 1520 ml Balance 4830 ml Labs Laboratory Tests 09/01/19 05:12: White Blood Count 17.3H, Red Blood Count 3.37L, Hemoglobin 9.3L, Hematocrit 29L, Mean Corpuscular Volume 86, Mean Corpuscular Hemoglobin 28, Mean Corpuscular Hemoglobin Concent 32, Red Cell Distribution Width 16.0H, Platelet Count 244, Mean Platelet Volume 10.6H, Neutrophils (%) (Auto) 81H, Lymphocytes (%) (Auto) 13, Monocytes (%) (Auto) 6, Eosinophils (%) (Auto) 0, Basophils (%) (Auto) 0, Neutrophils # (Auto) 14.0H, Lymphocytes # (Auto) 2.2, Monocytes # (Auto) 1.0, Eosinophils # (Auto) 0.0, Basophils # (Auto) 0.0 Microbiology 08/31/19 MRSA Screen - Final, Complete MRSA not isolated DIONICIO OBRIEN DO Sep 01, 2019 09:41
[2019-09-01] MEDS ORDERED: OXC5T PO (10:05)
[2019-09-01] MEDS: FERROUS SULF 325 MG (IRON) TAB PO SCH (10:08)
[2019-09-01] MEDS: ENOXAPARIN 60 MG/0.6 ML (LOVENOX) SYR SC SCH ×2 (10:08→22:12)
--- NOTE | 2019-09-01 10:26 | NUR ---
CM/SS: Visited with pt as per consult related to her not having custody of her other two children and recently given to a . Plan: Pt to return home with baby, with outside support agencies involved in care. Summary: Pt is in bed at the time of the visit. Pt initially reports she is very tired and has not had any sleep. This worker reminds pt of her new life of being a new mom. She reports that she and yue have been up much of the night. Yue Mariano is sleeping on the sofa in the room. Pt reports having had a 10 year old and her father, his grandfather is raising the child at this time. She reports being young and unable to care for child. Grandfather adopted the child, and pt sees the child regularly. Pt also reports that she has a child ([place]) that lives with her dad in [place] and she has not had contact with the child and the father for some time. This worker raises concern as to the whereabouts of the child. She is able to provide this worker with the father's name is Piotr Hernandez. This worker shares with pt that in cases as this when a mom does not have custody of her children a report can be made to the state so that they can determine the whereabouts of the child. She then ask if that is going to affect this child. This worker shares she does not know. It should not, but not for sure. Pt verbalizes understanding. 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 Pt is on [employer] and receiving [facility] for 21.75 hours. This is verified by the [facility] Worker, Cyndy Bedolla [phone]. Also pt gets [employer], and home delivered meals. This worker speaks briefly with mindy' he reports that he is tired, and pt reports that he is not the biological dad, but wants to be involved in the babies life, instead of the biological father. Pt does not share the story around this. Dr Lety Markham visits while this worker is present. She explains that baby will be circumcised today and pt will be in the hospital one more day. Pt verbalizes understanding. Pt verified that she has WIC program, and is offered services and given information on [facility], [facility], and [facility]. This worker will follow up with pt.
[2019-09-01 12:12] VITALS: BP 120/58
--- NOTE | 2019-09-01 12:14 | NUR ---
CM/SS: Hotline - Protective Services Report made to [facility] ([facility]CF) Report ID #[id number]
--- NOTE | 2019-09-01 13:27 | Anesthesia-General Post-Op ---
General Patient Condition Mental Status/LOC: Same as Preop Cardiovascular: Satisfactory Nausea/Vomiting: Absent Respiratory: Satisfactory Pain: Controlled Complications: Absent Post Op Complications Complications None Follow Up Care/Instructions Patient Instructions None needed. Anesthesia/Patient Condition Patient Condition Patient is doing well, C/O abd pain which is to be expected, stable vital signs, no apparent adverse anesthesia problems. RAFITA SMITH DO Sep 01, 2019 13:27
--- NOTE | 2019-09-01 13:44 | NUR ---
CM/SS: Pt is notified that the report to [facility] has been made. She expresses concern about the baby, and is encouraged to be upfront and honest if [facility] comes to talk with her. She verbalizes understanding.
--- NOTE | 2019-09-01 13:59 | NUR ---
CM/SS: Referral made to [facility] program [phone]. Mother gave this worker permission to make the referral.
[2019-09-01] MEDS: CATHETER FLUSH 10 ML SYR IV SCH (14:22)
[2019-09-01] MEDS ORDERED: PANTOPRAZOLE 20 MG TABLET (PROTONIX) PO SCH (17:45)
[2019-09-01] MEDS ORDERED: OMEPRAZOLE 20 MG (PriLOSEC) CAP NON-FORMULARY PO SCH (17:45)
[2019-09-01 18:00] VITALS: BP 116/57
--- NOTE | 2019-09-01 20:45 | NUR ---
Called Dr. Rousseau, as pt. c/o pain in R calf that hurts more when ambulating or wearing SCDs, requesting "compression socks". Will measure calves & instruct pt. to ambulate & wear SCDs. POC reviewed w/pt, verbalized understanding. Calves measured, both 20".
[2019-09-02 00:52] VITALS: BP 118/72
[2019-09-02] MEDS: METOCLOPRAMIDE 10 MG (REGLAN) TAB PO SCH ×2 (00:52→06:09)
[2019-09-02] MEDS: IBUPROFEN 600 MG (MOTRIN) TAB PO SCH ×2 (00:52→06:09)
[2019-09-02 06:09] VITALS: BP 124/70
[2019-09-02] MEDS: ACETAMINOPHEN 500 MG TAB (TYLENOL) PO SCH ×2 (06:09→15:00)
[2019-09-02 08:00] VITALS: BP 123/58
--- NOTE | 2019-09-02 08:00 | NUR ---
Pt complains of calf pain. No redness or localized swelling but painful to touch. Complained of edema - mild pitting edema. Pt states can't hardly bend legs. SCD's on when not in bed. 1100 Denies calf pain. Stated painful in thighs - she thinks due to swelling. Encouraged to elevate legs above heart.
[2019-09-02] MEDS: FERROUS SULF 325 MG (IRON) TAB PO SCH (08:15)
[2019-09-02] MEDS: DOCUSATE SODIUM 100 MG (COLACE) CAP PO SCH (08:15)
[2019-09-02] MEDS: ENOXAPARIN 60 MG/0.6 ML (LOVENOX) SYR SC SCH (10:41)
--- NOTE | 2019-09-02 11:54 | NUR ---
CM/SS: Follow up with pt as to how she and baby are doing today and to let her know that DCF will be making contact with her. Verified the phone number to reach her. [phone]. Plan: Pt will go home today with baby. Summary: Phone Call from DCF worker Sindi Poole [phone]. She is requesting contact information for pt. As she will make contact and conduct a phone interview/plan with pt. No in person visit based on COVID-19, guidelines. Pt aware that DCF will be making contact with her on today. She is is encouraged to answer her phone when they call, and be honest with them when they call. She verbalized understanding. Return call from DCF (Sindi). They have indicated they have talked with pt and developed a plan for both pt and baby. Pt is open to services and additionally a referral to to [facility]. DCF is ok for the baby and mother to be released to home, and they will follow up. DCF emailed copy of the plan to this worker. Plan printed and placed in Pt's medical record for scanning. Staff on OB notified of the plan and that pt can leave hospital when ready with baby.
[2019-09-02 12:15] VITALS: BP 105/65
--- NOTE | 2019-09-02 13:19 | Postpartum Progress Note ---
Post Op Post-operative Day #2 s/p RLTCS Subjective: Patient is without complaints. Ambulating, voiding after gentile removed. Tolerating a regular diet without nausea or vomiting. Normal lochia. Pain is well controlled with oral pain medications. Passing flatus. breast feeding. She has requested to restart her home omeprazole. She complained last night about calf pain. She is on prophylactic dosing of lovenox and SCDs. She was requesting FADIA type hose. Legs are obese and have some edema, but no redness, neg hernandez's measurements are equal R to L. However, will order doppler today as she is concerned about DVT. She does, however, state that her Calf pain is better than yesterday. No SOA. She has not walked in the halls but has in the room. US was not available last evening Pain is better controlled with the 10 mg oxycodone today. In addition, she has continued tylenol and motrin. No bm Appreciate the social work input. Objective: 09/02/19 09/02/19 09/02/19 09/02/19 06:09 08:00 08:00 12:15 Temp 36.3 36.4 36.3 36.4 Pulse 109 94 83 94 Resp 18 16 16 16 B/P (MAP) 124/70 (88) 123/58 (79) 105/65 (78) Pulse Ox 98 99 99 99 O2 Delivery Room Air Room Air Room Air Room Air Physical Exam: General - Alert and oriented, no apparent distress Abdomen - Soft, appropriately tender to palpation, non-distended, fundus firm at umbilicus Incision - clean, dry and intact; no erythema or induration, no drainage Extremities - 1-2+ edema, negative Hernandez's bilaterally Assessment: 1. post-operative day # 2, status post RLCTS. Recovering well, hemodynamically stable 2. Acute blood loss anemia - VSS on Iron 3. calf pain Plan: Routine post-operative care. Encourage breast feeding. Encourage ambulation. VTE prophylaxis: SCDs, lovenox Ferrous sulfate supplementation. Plan for discharge later today Addendum - Doppler LE is negative. She is no longer complaining of pain. She did not wish to wait for me to return to see her prior to dc so she was dc to home. Vitals - Labs Vital Signs - I&O Vital Signs Date Time Temp Pulse Resp B/P (MAP) Pulse Ox O2 Delivery O2 Flow Rate FiO2 09/02/19 12:15 36.4 94 16 105/65 (78) 99 Room Air 09/02/19 08:00 36.3 83 16 123/58 (79) 99 Room Air 09/02/19 08:00 36.4 94 16 99 Room Air 09/02/19 06:09 36.3 109 18 124/70 (88) 98 Room Air 09/02/19 00:52 36.2 92 18 118/72 (87) 97 Room Air 09/01/19 18:00 36.1 101 18 116/57 (76) 97 Room Air I & O 09/02/19 07:00 Intake Total 1000 ml Balance 1000 ml Labs Microbiology 08/31/19 MRSA Screen - Final, Complete MRSA not isolated DIONICIO OBRIEN DO Sep 02, 2019 13:19
[2019-09-02 14:13] VITALS: BP 105/65
--- NOTE | 2019-09-02 14:34 | NUR ---
Dr Rousseau notified per text of negative doppler studies on lower extremities.
--- NOTE | 2019-09-02 15:03 | Diagnostic Imaging Report ---
PROCEDURE: US venous lower ext bobby. TECHNIQUE: Multiple real-time grayscale images were obtained over the lower extremities in various projections, bilaterally. Additional duplex Doppler and color Doppler images were also obtained. INDICATION: Calf pain. COMPARISON: There are no prior studies for comparison. FINDINGS: There is generally good blood flow and compressibility at all levels of the deep venous system of each lower extremity. There is no sign of a deep venous thrombosis. IMPRESSION: There is no evidence for a deep venous thrombosis of either lower extremity. Dictated by: Dictated on workstation # [id number]
--- NOTE | 2019-09-02 16:00 | NUR ---
MELISSA NAQVI demonstrates understanding of discharge instructions and accurately returns instructions upon questioning. Copy of Post-Discharge Instructions and Medication Discharge Instructions given to patient. MELISSA NAQVI is able to manage continuing needs after discharge. Patients belongings returned to patient. Skin dry and intact; no breakdown noted. [facility] at 1600. MELISSA NAQVI left floor via w/c, accompanied by staff.
== END 2019-09-02 16:00 | disposition home or self-care (01) | DRG 787 ==
LOC: LDRP 05:51
PROVIDERS: ADMIT Obstetrics & Gynecology; ATTEND Obstetrics & Gynecology
PROC: 10D00Z1 Extraction of Products of Conception, Low, Open Approach (ICD-10-PCS; principal; 2019-08-31 07:43)
DX: O34.211 Maternal care for low transverse scar from previous cesarean delivery (principal); O99.214 Obesity complicating childbirth; E66.01 Morbid (severe) obesity due to excess calories; O99.354 Diseases of the nervous system complicating childbirth; G93.2 Benign intracranial hypertension; O99.824 Streptococcus B carrier state complicating childbirth; O90.81 Anemia of the puerperium; D62 Acute posthemorrhagic anemia; Z37.0 Single live birth; Z3A.39 39 weeks gestation of pregnancy; Z98.2 Presence of cerebrospinal fluid drainage device
CPT/HCPCS: 36415; 85007; 85025; 85027; 86850; 86900; 86901; 87081; 93970

== ENCOUNTER 2020-03-26 23:03 | Emergency (ER) | payer MEDICAID ==
[~2020-03-26] VITALS: Ht 167 cm; Wt 181.0 kg
[~2020-03-26 23:03] MED LIST changes: +ACET-93 PO; -AMPICILLIN FOR IV USE 1,000 MG/VIAL ONE; -CITRIC ACID/SOB CIT (BICITRA) 30 ML UDC ONE; +DCS100C PO; -FAMOTIDINE 20MG/2ML IV (PEPCID) ONE; +IBUP-844 PO; -LACTATED RINGERS 1,000 ML IV ONE; -METOCLOPRAMIDE INJ 10 MG/2 ML (REGLAN) ONE; +OXC5T PO; -WATER (STERILE) FOR INJECTION 10 ML ONE; -metroNIDAZOLE 500MG/100ML IVPB 100 ML ONE
--- NOTE | 2020-03-27 00:19 | ED Hip Pain/Injury ---
General Chief Complaint: Hip/Pelvic Problems Stated Complaint: L HIP PAIN Nursing Triage Note: Pt here with left hip pain after "scooting down the stairs" last . Source: patient History of Present Illness Date Seen by Provider: Mar 26, 2020 Time Seen by Provider: 23:49 Initial Comments PT ARRIVES VIA POV FROM HOME C/O LEFT HIP PAIN SINCE Saturday03/24/20 STATES SHE HAD WALKED UP A FLIGHT OF 9 STAIRS, AND WAS COMING DOWN THE STAIRS--STATES SHE ALWAYS HAS TO "SCOOT HERSELF" DOWN THE STAIRS (PT IS MORBIDLY OBESE--REPORTS 400#) AND PAIN BEGAN IN LEFT HIP AFTER SHE DID THAT DENIES ANY TRAUMA TO THE HIP, AND DID NOT FALL OR LAND HARD ON HER BOTTOM OR HIP NO PAIN IN BACK NO PARESTHESIAS OR MOTOR DEFICITS NO SWELLING TO HIP OR LEG. PT STATES PAIN IS WORST WITH LAYING DOWN, OR SITTING ON EDGE OF BED HAS NOT TAKEN ANYTHING FOR PAIN NO PRIOR PROBLEMS WITH THIS HIP PT DOES NOT WORK, IS ON DISABILITY LMP 02/17/20-02/22/20. NO CONTROL. PT DELIVERED 9 MONTHS AGO, NOT BREAST FEEDING. CLAIMS NO SEX SINCE DELIVERY Other PCP: [facility] Allergies and Home Medications Allergies Coded Allergies: cinnamon (Verified Allergy, Severe, ANAPHYLAXIS, 11/15/16) hydroxyzine (Verified Allergy, Severe, SUICIDAL, 11/15/16) pregabalin (Verified Allergy, Severe, SUICIDAL, 11/15/16) acetazolamide (Verified Allergy, Intermediate, SWELLING, 11/15/16) ketorolac (Verified Allergy, Intermediate, SHAKING, 11/15/16) tramadol (Verified Allergy, Intermediate, SHAKING, 11/15/16) latex (Verified Allergy, Unknown, 11/15/16) paroxetine (Verified Allergy, Unknown, 11/15/16) Home Medications Acetaminophen 500 Mg Tablet, 1,000 MG PO Q8HR Prescribed by: DIONICIO OBRIEN on 08/31/19 1240 Cyclobenzaprine HCl 10 Mg Tablet, 10 MG PO Q8H PRN for SPASMS Prescribed by: FLAKITO CONWAY on 03/27/2026 Diclofenac Sodium 100 Gm Gel..gram., 100 GM TP TID Prescribed by: FLAKITO CONWAY on 03/27/2026 Docusate Sodium 100 Mg Capsule, 100 MG PO BID Prescribed by: DIONICIO OBRIEN on 08/31/19 1240 Ibuprofen 600 Mg Tablet, 600 MG PO Q6HR Prescribed by: DIONICIO OBRIEN on 08/31/19 1240 Methylprednisolone 4 Mg Tab.ds.pk, 4 MG PO UD PER DOSE PACK INSTRUCTIONS Prescribed by: FLAKITO CONWAY on 03/27/20 0027 Omeprazole 20 Mg Capsule.dr, 20 MG PO DAILY, (Reported) Oxycodone Hcl 5 Mg Tab, 10 MG PO Q6H PRN for PAIN-SEVERE (8-10) Prescribed by: DIONICIO OBRIEN on 09/01/19 1005 Pnv No.122/Iron/Folic Acid 1 Each Tablet, 1 EACH PO DAILY, (Reported) Patient Home Medication List Home Medication List Reviewed: Yes Review of Systems Constitutional: no symptoms reported : No LMP: Feb 17, 2020 (PERIOD -02/22/20NO CONTROL) Control/STD Prophylaxis: None Musculoskeletal: see HPI Skin: no symptoms reported Psychiatric/Neurological: No Symptoms Reported Past Fbnelph-Bjrsro-Wfseco Hx Past Med/Social Hx: Reviewed and Corrections made Patient Social History Alcohol Use: Rarely Uses Number of Drinks Today: Alcohol Beverage of Choice: Wine Recreational Drug Use: Yes (REGULAR THC USE) Drug of Choice: marijuana - has not used during Smoking Status: Former Smoker (2 PPD, QUIT 2018) Type Used: Cigarettes Former Smoker, Quit: Dec 25, 2018 2nd Hand Smoke Exposure: Yes Recent Foreign Travel: No Contact w/Someone Who Travel: No Recent Infectious Disease Expo: No Recent Hopitalizations: No Immunizations Up To Date Tetanus Booster (TDap): Less than 5yrs PED Vaccines UTD: Yes Date of Influenza Vaccine: Mar 16, 2019 Seasonal Allergies Seasonal Allergies: Yes Past Medical History Surgeries: Yes (LUMBAR SHUNT, ORAL/JAW SURGERY, UD, X 3) Bladder Surgery, Section, Gallbladder, Neurological Respiratory: Yes (allergy induced lung issues) Chronic Bronchitis Cardiac: Yes High Cholesterol, Hypertension Neurological: Yes (PSEUDOTUMOR CEREBRI-S/P LUMBAR SHUNT) Neuropathy, Seizure Disorder Reproductive Disorders: No Female Reproductive Disorders: Denies Sexually Transmitted Disease: No HIV/AIDS: No Genitourinary: Yes UTI-Chronic Gastrointestinal: Yes (S/P CHOLECYSTECTOMY) Gastroesophageal Reflux, Ulcer, Gall Bladder Disease Musculoskeletal: Yes (HERNIATED DISC, LP shunt) Arthritis, Fibromyalgia, Scoliosis, Chronic Back Pain Endocrine: Yes (MORBID OBESITY--AT LEAST 400#) Diabetes, Non-Insulin dep, Lupus HEENT: No Loss of Vision: Bilateral Hearing Impairment: Denies Cancer: No Psychosocial: Yes Anxiety, Bipolar, Depression Integumentary: No Blood Disorders: No Adverse Reaction/Blood Tranf: No Family Medical History Completed stroke 19 MOTHER Hypertension 19 MOTHER Seizure disorder 19 MOTHER No Pertinent Family Hx Physical Exam Vital Signs Vital Signs - First Documented 03/26/20 23:46 Temp 37.3 Pulse 98 Resp 18 B/P (MAP) 143/85 (104) Pulse Ox 98 O2 Delivery Room Air Capillary Refill : Less Than 3 Seconds Height, Weight, BMI Height: 5'6.00" Weight: 300lbs. 0.0oz. 136.255286cq; 64.00 BMI Method:Estimated General Appearance: No Apparent Distress, Obese (MORBIDLY OBESE; PT AMBULATED IN ON HER OWN) Cardiovascular: Regular Rate, Rhythm Respiratory: Normal Breath Sounds Back: No CVA Tenderness, No Vertebral Tenderness Extremity: Other (TENDERNESS TO LEFT LATERAL HIP AREA. NO EXTERNAL EVIDENCE OF TRAUMA. NO RASH. ) Neurologic/Psychiatric: Alert, Oriented x3, No Motor/Sensory Deficits, Normal Mood/Affect, professor of chemistry II-XII Norm as Tested Skin: Normal Color, Warm/Dry; No Ecchymosis; Tattoos/Piercings Progress/Results/Core Measures Results/Orders My Orders Orders - FLAKITO CONWAY DO Pelvis With Left Hip 2-3 Views (03/27/20 00:01) Orphenadrine Inj (Ed Only) (Norflex Inje (03/27/20 00:30) Methylprednisolone Sod Succ (Solu-Medrol (03/27/20 00:30) Medications Given in ED Current Medications Medications Dose Ordered Sig/Lee Ann Route Start Time Stop Time Status Last Admin Dose Admin Methylprednisolone Sodium Succinate 125 mg ONCE ONCE IM 03/27/20 00:30 03/27/20 00:31 DC 03/27/20 01:18 125 MG Orphenadrine Citrate 60 mg ONCE ONCE IM 03/27/20 00:30 03/27/20 00:31 DC 03/27/20 01:18 60 MG Vital Signs/I&O 03/26/20 23:46 Temp 37.3 Pulse 98 Resp 18 B/P (MAP) 143/85 (104) Pulse Ox 98 O2 Delivery Room Air Blood Pressure Mean: 104 Progress Progress Note : Progress Note PT AMBULATES ON HER OWN. Diagnostic Imaging Comments XRAYS PELVIS AND LEFT HIP--NO ACUTE PROCESS, PENDING RADIOLOGIST REVIEW Reviewed: Reviewed by Me Departure Impression Primary Impression: Left hip pain Additional Impression: Morbid obesity Disposition: HOME, SELF-CARE Condition: Stable Departure-Patient Inst. Referrals: TARA JUAREZ MD (PCP/Family) Primary Care Physician Patient Instructions: Hip Pain (DC) Add. Discharge Instructions: ALTERNATE ICE AND HEAT TO SORE AREA AT 20 MINUTE INTERVALS ACTIVITIES TOLERATED FOLLOW UP WITH [facility] NEXT WEEK FOR FURTHER CARE All discharge instructions reviewed with patient and/or family. Voiced understanding. Scripts Cyclobenzaprine HCl (Cyclobenzaprine HCl) 10 Mg Tablet 10 MG PO Q8H PRN for SPASMS, #15 TAB 0 Refills Prov: FLAKITO CONWAY DO 03/27/20 Methylprednisolone (Medrol) 4 Mg Tab.ds.pk 4 MG PO UD for 6 Days, #21 PKG PER DOSE PACK INSTRUCTIONS Prov: FLKAITO CONWAY DO 03/27/20 Diclofenac Sodium (Voltaren) 100 Gm Gel..gram. 100 GM TP TID, #1 TUBE Prov: FLAKITO CONWAY DO 03/27/20 FLAKITO CONWAY DO Mar 27, 2020 00:19
[2020-03-27] MEDS ORDERED: DICL100G18 TP ×2 (00:26→00:27)
[2020-03-27] MEDS ORDERED: CYCL10TA9 PO ×2 (00:26→00:27)
[2020-03-27] MEDS ORDERED: METH4TAB PO ×2 (00:26→00:27)
[2020-03-27] MEDS ORDERED: ORPHENADRINE 60 MG/2 ML (NORFLEX) AMP (ED ONLY) IM ONE (00:30)
[2020-03-27] MEDS ORDERED: methylPREDNISolone 125 MG (Solu-MEDROL) VIAL IM ONE (00:30)
[2020-03-27 01:20] VITALS: BP 137/80
--- NOTE | 2020-03-27 07:31 | Diagnostic Imaging Report ---
INDICATION: Left hip pain. FINDINGS: 3 views. AP pelvis and left hip. The bony pelvis is intact. SI joints and pubic symphysis appear normal. Femoral heads are normal articulation bilaterally. 2 views of the left hip show smooth articulating surfaces. No fracture. IMPRESSION: Negative AP pelvis and left hip. Dictated by: Dictated on workstation # [id number]
== END 2020-03-27 01:20 | disposition home or self-care (01) ==
LOC: EDUNIT# 23:03 → ER 23:05
DX: M25.552 Pain in left hip (principal); E66.01 Morbid (severe) obesity due to excess calories; K21.9 Gastro-esophageal reflux disease without esophagitis; G89.29 Other chronic pain; M54.9 Dorsalgia, unspecified; Z68.44 Body mass index [BMI] 60.0-69.9, adult; Z82.49 Family history of ischemic heart disease and other diseases of the circulatory system; Z87.891 Personal history of nicotine dependence; Z88.5 Allergy status to narcotic agent; Z91.040 Latex allergy status; Z88.8 Allergy status to other drugs, medicaments and biological substances; Z79.891 Long term (current) use of opiate analgesic

== ENCOUNTER 2020-08-06 16:52 | Emergency (ER) | payer MEDICAID ==
[~2020-08-06] VITALS: Ht 167.4 cm; Wt 198.9 kg
[~2020-08-06 16:52] MED LIST changes: +CYCL10TA9 PO; +DICL100G18 TP; +METH4TAB PO
[2020-08-06 17:18] LABS: BILIRUBIN,URINE NEGATIVE (NEGATIVE); CLARITY,URINE TURBID; COLOR,URINE RED; GLUCOSE, URINE (UA) NEGATIVE (NEGATIVE); KETONES,URINE NEGATIVE (NEGATIVE); LEUKOCYTE ESTERASE ,URINE TRACE (NEGATIVE); NITRITE,URINE NEGATIVE (NEGATIVE); PH,URINE 5.5 (5-9); PROTEIN,URINE 1+ (NEGATIVE)
[2020-08-06 17:27] LABS: BACTERIA,URINE MODERATE /HPF; RBC,URINE TNTC /HPF
[2020-08-06 17:28] LABS: SQUAMOUS EPITHELIAL CELL,UR 0-2 /HPF
[2020-08-06] MEDS ORDERED: fentaNYL INJECTION 100 MCG/2 ML AMP IVP ONE ×2 (17:45→19:45)
[2020-08-06] MEDS ORDERED: LACTATED RINGERS 1,000 ML IV ONE (17:45)
[2020-08-06 17:47] LABS: BASOPHILS # (AUTO) 0.1 10^3/uL (0.0-0.1); BASOPHILS % (AUTO) 0 % (0-10); EOSINOPHILS # (AUTO) 0.2 10^3/uL (0.0-0.3); EOSINOPHILS % (AUTO) 1 % (0-10); HEMATOCRIT 37 % (35-52); HEMOGLOBIN 10.7 g/dL (11.5-16.0); LYMPHOCYTES # (AUTO) 3.9 10^3/uL (1.0-4.0); LYMPHOCYTES % (AUTO) 21 % (12-44); MEAN CORPUSCULAR HEMOGLOBIN 22 pg (25-34); MEAN CORPUSCULAR HGB CONC 29 g/dL (32-36); MEAN CORPUSCULAR VOLUME 75 fL (80-99); MEAN PLATELET VOLUME 9.9 fL (9.0-12.2); MONOCYTES # (AUTO) 1.1 10^3/uL (0.0-1.0); MONOCYTES % (AUTO) 6 % (0-12); NEUTROPHILS # (AUTO) 13.3 10^3/uL (1.8-7.8); NEUTROPHILS % (AUTO) 71 % (42-75); PLATELET COUNT 413 10^3/uL (130-400); WHITE BLOOD COUNT 18.6 10^3/uL (4.3-11.0)
[2020-08-06 17:49] LABS: ALBUMIN 3.7 GM/DL (3.2-4.5); CHLORIDE 107 MMOL/L (98-107); POTASSIUM 4.4 MMOL/L (3.6-5.0); SODIUM 139 MMOL/L (135-145)
[2020-08-06 17:50] LABS: CALCIUM 8.7 MG/DL (8.5-10.1)
[2020-08-06 17:51] LABS: GLUCOSE 115 MG/DL (70-105)
[2020-08-06 17:52] LABS: TOTAL PROTEIN 7.5 GM/DL (6.4-8.2)
[2020-08-06 17:53] LABS: BILIRUBIN,TOTAL 0.2 MG/DL (0.1-1.0); CARBON DIOXIDE 20 MMOL/L (21-32)
[2020-08-06 17:55] LABS: ALKALINE PHOSPHATASE 84 U/L (40-136); CREATININE SERUM 0.84 MG/DL (0.60-1.30); GFR ESTIMATED > 60
[2020-08-06 17:56] LABS: BUN/CREATININE RATIO 13
[2020-08-06 18:11] LABS: BAND NEUTROPHILS 2 %; HYPOCHROMASIA SLIGHT; LYMPHOCYTES % (MANUAL) 30 %; MONOCYTES % (MANUAL) 6 %; NEUTROPHILS % (MANUAL) 58 %; REACTIVE LYMPHOCYTES 4 %
[2020-08-06 18:12] LABS: ANISOCYTOSIS SLIGHT; MICROCYTOSIS MODERATE
[2020-08-06 18:21] LABS: ALANINE AMINOTRANSFERASE 21 U/L (0-55)
[2020-08-06 18:30] LABS: AMPHETAMINE SCREEN, URINE NEGATIVE (NEGATIVE); BARBITURATE SCREEN URINE NEGATIVE (NEGATIVE); BENZODIAZEPINES SCREEN URINE NEGATIVE (NEGATIVE); CANNABINOID SCREEN, URINE POSITIVE (NEGATIVE); COCAINE SCREEN URINE NEGATIVE (NEGATIVE); METHADONE STAT NEGATIVE (NEGATIVE); METHAMPHETAMINE SCREEN URINE S NEGATIVE (NEGATIVE); OPIATE SCREEN URINE NEGATIVE (NEGATIVE); OXYCODONE STAT NEGATIVE (NEGATIVE); PROPOXYPHENE STAT NEGATIVE (NEGATIVE); TRICYCLIC ANTIDEPRESSANTS SCRE NEGATIVE (NEGATIVE)
--- NOTE | 2020-08-06 18:48 | ED Abdominal Pain ---
General Chief Complaint: Female Reproductive Stated Complaint: VAG BLEEDING/CRAMPING Nursing Triage Note: TO ED PER W/C C/O ABD CRAMPING AND BLEEDING REPORTS IS PASSING LG CLOTS. LMP WAS ONSET YESTERDAY. JUL 10 Sepsis Screen: No Definite Risk Source of Information: Patient Exam Limitations: No Limitations History of Present Illness Date Seen by Provider: Aug 06, 2020 Time Seen by Provider: 17:05 Initial Comments This is a 29-year-old female who presents to the ER with complaints of severe right lower quadrant abdominal cramping pain and profuse vaginal bleeding with the onset of her menses. Reports increasing pain/bleeding with menses over the past three months. States she has saturated apx. 10 large pads throughout the day. Has been also passing small pea sized clots. States pain is in right lower quadrant, intermittent, and sharp in nature. Rating 10/10 when present. States she has not engaged in intercourse in over a year and has no chance of . LMP 07/10/2020. Denies syncope, light headedness, fever, nausea/vomiting, diarrhea. Allergies and Home Medications Allergies Coded Allergies: cinnamon (Verified Allergy, Severe, ANAPHYLAXIS, 11/15/16) hydroxyzine (Verified Allergy, Severe, SUICIDAL, 11/15/16) pregabalin (Verified Allergy, Severe, SUICIDAL, 11/15/16) acetazolamide (Verified Allergy, Intermediate, SWELLING, 11/15/16) ketorolac (Verified Allergy, Intermediate, SHAKING, 11/15/16) tramadol (Verified Allergy, Intermediate, SHAKING, 11/15/16) latex (Verified Allergy, Unknown, 11/15/16) paroxetine (Verified Allergy, Unknown, 11/15/16) Home Medications Acetaminophen 500 Mg Tablet, 1,000 MG PO Q8HR Prescribed by: DIONICIO OBRIEN on 08/31/19 1240 Cyclobenzaprine HCl 10 Mg Tablet, 10 MG PO Q8H PRN for SPASMS Prescribed by: FLAKITO CONWAY on 03/27/2026 Cyclobenzaprine HCl 10 Mg Tablet, 10 MG PO Q8H PRN for SPASMS Prescribed by: WALTER JACKSON on 08/06/202106 Diclofenac Sodium 100 Gm Gel..gram., 100 GM TP TID Prescribed by: FLAKITO CONWAY on 03/27/2026 Docusate Sodium 100 Mg Capsule, 100 MG PO BID Prescribed by: DIONICIO OBRIEN on 08/31/19 124 Ibuprofen 600 Mg Tablet, 600 MG PO Q6HR Prescribed by: DIONICIO OBRIEN on 08/31/19 124 Methylprednisolone 4 Mg Tab.ds.pk, 4 MG PO UD PER DOSE PACK INSTRUCTIONS Prescribed by: FLAKITO CONWAY on 03/27/2026 Omeprazole 20 Mg Capsule.dr, 20 MG PO DAILY, (Reported) Oxycodone Hcl 5 Mg Tab, 10 MG PO Q6H PRN for PAIN-SEVERE (8-10) Prescribed by: DIONICIO OBRIEN on 09/01/19 100 Pnv No.122/Iron/Folic Acid 1 Each Tablet, 1 EACH PO DAILY, (Reported) Sulfamethoxazole/Trimethoprim 1 Each Tablet, 1 EACH PO BID Prescribed by: WALTER JACKSON on 08/06/202030 Patient Home Medication List Home Medication List Reviewed: Yes Review of Systems Review of Systems Constitutional: no symptoms reported EENTM: No Symptoms Reported Respiratory: No Symptoms Reported Cardiovascular: No Symptoms Reported Gastrointestinal: See HPI Genitourinary: See HPI Musculoskeletal: no symptoms reported Skin: no symptoms reported Psychiatric/Neurological: No Symptoms Reported Endocrine: No Symptoms Reported Hematologic/Lymphatic: See HPI, Anemia, Blood Clots Past Dpymrdi-Nzjrjy-Rfrmwj Hx Patient Social History Alcohol Use: Denies Use Number of Drinks Today: Alcohol Beverage of Choice: Wine Drug of Choice: marijuana - has not used during Smoking Status: Former Smoker Type Used: Cigarettes Former Smoker, Quit: Dec 25, 2018 2nd Hand Smoke Exposure: Yes Recent Infectious Disease Expo: No Recent Hopitalizations: No Immunizations Up To Date Tetanus Booster (TDap): Less than 5yrs PED Vaccines UTD: Yes Date of Influenza Vaccine: Mar 16, 2019 Seasonal Allergies Seasonal Allergies: Yes Past Medical History Surgeries: Yes (LUMBAR SHUNT, ORAL/JAW SURGERY, UD, X 3) Bladder Surgery, Section, Gallbladder, Neurological Respiratory: Yes (allergy induced lung issues) Chronic Bronchitis Cardiac: Yes High Cholesterol, Hypertension Neurological: Yes (PSEUDOTUMOR CEREBRI-S/P LUMBAR SHUNT) Neuropathy, Seizure Disorder Last Menstrual Period: Jul 10, 2020 Reproductive Disorders: No Female Reproductive Disorders: Denies Sexually Transmitted Disease: No HIV/AIDS: No Genitourinary: Yes UTI-Chronic Gastrointestinal: Yes (S/P CHOLECYSTECTOMY) Gastroesophageal Reflux, Ulcer, Gall Bladder Disease Musculoskeletal: Yes (HERNIATED DISC, LP shunt) Arthritis, Fibromyalgia, Scoliosis, Chronic Back Pain Endocrine: Yes (MORBID OBESITY--AT LEAST 400#) Diabetes, Non-Insulin dep, Lupus HEENT: No Loss of Vision: Bilateral Hearing Impairment: Denies Cancer: No Psychosocial: Yes Anxiety, Bipolar, Depression Integumentary: No Blood Disorders: No Adverse Reaction/Blood Tranf: No Family Medical History Completed stroke 19 MOTHER Hypertension 19 MOTHER Seizure disorder 19 MOTHER No Pertinent Family Hx Physical Exam Vital Signs Vital Signs - First Documented 08/06/20 17:05 Temp 37.1 Pulse 90 Resp 18 B/P (MAP) 133/51 (78) Pulse Ox 96 O2 Delivery Room Air Capillary Refill : Less Than 3 Seconds Height/Weight/BMI Height: 5'6.00" Weight: 300lbs. 0.0oz. 136.535957eu; 70.00 BMI Method:Estimated General Appearance: WD/WN, no apparent distress HEENT: PERRL/EOMI, normal ENT inspection, pharynx normal Neck: full range of motion, supple Respiratory: lungs clear, normal breath sounds, no respiratory distress Cardiovascular: normal peripheral pulses, regular rate, rhythm, no murmur Gastrointestinal: normal bowel sounds, non tender, soft Extremities: normal range of motion, non-tender, normal inspection Back: normal inspection Pelvic: normal external exam, normal adnexa, no cerv. motion tender, no masses; No discharge, No lesions, No tender w/ cervical motion; vaginal bleeding (no active bleeding from cervix or vaginal cordero, no tears or lesions ) Neurologic/Psychiatric: no motor/sensory deficits, alert, normal mood/affect, oriented x 3 Skin: normal color, warm/dry; No cool, No diaphoresis, No pallor Progress/Results/Core Measures Results/Orders Lab Results Laboratory Tests Test 08/06/20 17:12 08/06/20 17:23 08/06/20 17:44 08/06/20 18:12 Range/Units Urine Color RED H Urine Clarity TURBID Urine pH 5.5 5-9 Urine Specific [place] >=1.030 1.016-1.022 Urine Protein 1+ H NEGATIVE Urine Glucose (UA) NEGATIVE NEGATIVE Urine Ketones NEGATIVE NEGATIVE Urine Nitrite NEGATIVE NEGATIVE Urine Bilirubin NEGATIVE NEGATIVE Urine Urobilinogen 0.2 < = 1.0 MG/DL Urine Leukocyte Esterase TRACE H NEGATIVE Urine RBC (Auto) 3+ H NEGATIVE Urine RBC TNTC H /HPF Urine WBC 5-10 H /HPF Urine Squamous Epithelial Cells 0-2 /HPF Urine Crystals NONE /LPF Urine Bacteria MODERATE H /HPF Urine Casts NONE /LPF Urine Mucus NEGATIVE /LPF Urine Culture Indicated YES Urine Test NEGATIVE NEGATIVE Urine Opiates Screen NEGATIVE NEGATIVE Urine Oxycodone Screen NEGATIVE NEGATIVE Urine Methadone Screen NEGATIVE NEGATIVE Urine Propoxyphene Screen NEGATIVE NEGATIVE Urine Barbiturates Screen NEGATIVE NEGATIVE Ur Tricyclic Antidepressants Screen NEGATIVE NEGATIVE Urine Phencyclidine Screen NEGATIVE NEGATIVE Urine Amphetamines Screen NEGATIVE NEGATIVE Urine Methamphetamines Screen NEGATIVE NEGATIVE Urine Benzodiazepines Screen NEGATIVE NEGATIVE Urine Cocaine Screen NEGATIVE NEGATIVE Urine Cannabinoids Screen POSITIVE H NEGATIVE White Blood Count 18.6 H 4.3-11.0 10^3/uL Red Blood Count 4.97 3.80-5.11 10^6/uL Hemoglobin 10.7 L 11.5-16.0 g/dL Hematocrit 37 35-52 % Mean Corpuscular Volume 75 L 80-99 fL Mean Corpuscular Hemoglobin 22 L 25-34 pg Mean Corpuscular Hemoglobin Concent 29 L 32-36 g/dL Red Cell Distribution Width 17.9 H 10.0-14.5 % Platelet Count 413 H 130-400 10^3/uL Mean Platelet Volume 9.9 9.0-12.2 fL Immature Granulocyte % (Auto) 1 % Neutrophils (%) (Auto) 71 42-75 % Lymphocytes (%) (Auto) 21 12-44 % Monocytes (%) (Auto) 6 0-12 % Eosinophils (%) (Auto) 1 0-10 % Basophils (%) (Auto) 0 0-10 % Neutrophils # (Auto) 13.3 H 1.8-7.8 10^3/uL Lymphocytes # (Auto) 3.9 1.0-4.0 10^3/uL Monocytes # (Auto) 1.1 H 0.0-1.0 10^3/uL Eosinophils # (Auto) 0.2 0.0-0.3 10^3/uL Basophils # (Auto) 0.1 0.0-0.1 10^3/uL Immature Granulocyte # (Auto) 0.1 0.0-0.1 10^3/uL Neutrophils % (Manual) 58 % Lymphocytes % (Manual) 30 % Monocytes % (Manual) 6 % Band Neutrophils 2 % Reactive Lymphocytes 4 % Hypochromasia SLIGHT Anisocytosis SLIGHT Microcytosis MODERATE Sodium Level 139 135-145 MMOL/L Potassium Level 4.4 3.6-5.0 MMOL/L Chloride Level 107 98-107 MMOL/L Carbon Dioxide Level 20 L 21-32 MMOL/L Anion Gap 12 5-14 MMOL/L Blood Urea Nitrogen 11 7-18 MG/DL Creatinine 0.84 0.60-1.30 MG/DL Estimat Glomerular Filtration Rate > 60 BUN/Creatinine Ratio 13 Glucose Level 115 H 70-105 MG/DL Calcium Level 8.7 8.5-10.1 MG/DL Corrected Calcium 8.9 8.5-10.1 MG/DL Total Bilirubin 0.2 0.1-1.0 MG/DL Aspartate Amino Transf (AST/SGOT) 19 5-34 U/L Alanine Aminotransferase (ALT/SGPT) 21 0-55 U/L Alkaline Phosphatase 84 40-136 U/L Total Protein 7.5 6.4-8.2 GM/DL Albumin 3.7 3.2-4.5 GM/DL C-Reactive Protein High Sensitivity 3.93 H 0.00-0.50 MG/DL Test 08/06/20 18:46 Range/Units Thyroid Stimulating Hormone (TSH) 1.67 0.35-4.94 UIU/ML Micro Results Microbiology 08/06/20 Urine Culture - Final, Complete Gram Pos Mixed Bacterial Janette My Orders Orders - WALTER JACKSON APRN Ua Culture If Indicated (08/06/20 16:59) Hcg,Qualitative Urine (08/06/20 17:07) Urine Culture (08/06/20 17:12) Fentanyl Injection (Sublimaze Injection (08/06/20 17:45) Lactated Ringers (Lr 1000 Ml Iv Solution (08/06/20 17:45) Cbc With Automated Diff (08/06/20 17:39) Ed Iv/Invasive Line Start (08/06/20 17:39) Comprehensive Metabolic Panel (08/06/20 17:39) Manual Differential (08/06/20 17:23) Drug Screen Stat (Urine) (08/06/20 18:13) Hs C Reactive Protein (08/06/20 18:26) Ct Abdomen/Pelvis W (08/06/20 18:36) Iohexol Injection (Omnipaque 350 Mg/Ml 1 (08/06/20 19:00) Received Contrast (Hold Metformin- Contr (08/06/20 19:00) Sodium Chloride Flush (Catheter Flush Sy (08/06/20 19:00) Ns (Ivpb) (Sodium Chloride 0.9% Ivpb Bag (08/06/20 19:00) Thyroid Stimulating Hormone (08/06/20 18:57) Fentanyl Injection (Sublimaze Injection (08/06/20 19:45) Ibuprofen Tablet (Motrin Tablet) (08/06/20 19:45) Ceftriaxone For Iv Use (Rocephin For I (08/06/20 20:00) Ibuprofen Tablet (Motrin Tablet) (08/06/20 19:51) Orphenadrine Inj (Ed Only) (Norflex Inje (08/06/20 20:30) Neisseria Gonorrhea Swab (08/06/20 20:51) Chlamydia Trachomatis Swab (08/06/20 20:51) Medications Given in ED Vital Signs/I&O 08/06/20 08/06/20 17:05 21:11 Temp 37.1 36.9 Pulse 90 77 Resp 18 20 B/P (MAP) 133/51 (78) 134/87 (78) Pulse Ox 96 97 O2 Delivery Room Air Room Air Blood Pressure Mean: 78 Progress Progress Note : Progress Note Patient examined in no acute distress. Orders placed for urine , UA, basic blood work. Will give fentanyl 50 mcg IV push for pain and liter of LR. No acute findings noted on vaginal/cervical exam. No active bleeding appreciated. VSS. UA indicative of UTI. Labs reviewed and noted to have WBC18.6. States she has history of chronic Leukocystosis, CRP added to blood work. Hgb stable at 10.7. Does have history of chronic anemia, for which she is suppose to be taking iron but does not take. Orders placed for CT abd/pelvis to assess for stones, appendicitis or ovarian cyst. As her symptoms have been present for 48 hours, and intermittent, this is unlikely ovarian torsion. Additional Fentanyl 50mcg IVP ordered with Ibuprofen 800mg PO. CT reviewed and shows no acute findings. CRP elevated at 3.9. Will treat UTI. Reported right hip pain/spasm from positioning for cervical exam. Orders placed for Norflex 60mg. Reviewed findings with Dr. Kamara-KNIFEMAN, agrees with f/u labs and transvaginal us on Saturday with close follow up with her KNIFEMAN. Reported feeling much improved and ready to discharge. Reviewed discharge plan of care and she is agreeable with plan. Diagnostic Imaging Diagonstic Imaging: CT Plain Films/CT/US/NM/MRI: abdomen, pelvis Comments NAME: MELISSA NAQVI [facility] REC#: [id number] PT STATUS: REG ER : 1990 PHYSICIAN: WALTER JACKSON CALL CENTER REPRESENTATIVE ADMIT DATE: 08/06/20/ER Signed Date of Exam:08/06/20 CT ABDOMEN/PELVIS W PROCEDURE: CT abdomen and pelvis with contrast. TECHNIQUE: Multiple contiguous axial images were obtained through the abdomen and pelvis after administration of intravenous contrast. Auto Exposure Controls were utilized during the CT exam to meet ALARA standards for radiation dose reduction. All CT scans use one or more of the following dose optimizing techniques: automated exposure control, MA and/or KvP adjustment based on patient size and exam type or iterative reconstruction. DATE: August 06, 2020. COMPARISON: None. INDICATION: 29-year-old female, right lower quadrant abdominal pain. Vaginal bleeding. FINDINGS: The visualized portions of the lung bases are clear. The heart is not enlarged. There is no pericardial effusion. The liver is unremarkable in size and contour. There is no identified liver lesion. The main, right, and left portal veins are patent. The patient is status post cholecystectomy. There is no biliary ductal dilation. The main pancreatic duct is not abnormally dilated. Unremarkable appearance of the pancreatic parenchyma. The spleen is normal in size. The adrenal glands are unremarkable. Unremarkable appearance of the renal parenchyma. The urinary collecting systems are not distended. There is no identified renal or ureteral stone. Urinary bladder is underdistended and not well evaluated. Limited CT assessment of the uterus and adnexa is grossly unremarkable. The intestinal tract is not distended. The appendix is not well seen. There are no identified secondary findings to suggest acute appendicitis. There is no free intraperitoneal air. There is no drainable fluid collection. There is no free pelvic fluid. There is no identified abnormally enlarged lymph node in the abdomen or pelvis meeting CT size criteria for adenopathy. There is mild inflammatory stranding within the anterior abdominal wall subcutaneous tissues. The There are disc degenerative changes at L5-S1. There is no identified acute bony abnormality. IMPRESSION: CT ABDOMEN AND PELVIS. 1. No identified acute abnormality in the abdomen or pelvis. Dictated by: Dictated on workstation # [id number] Dict: 08/06/201919 Trans: 08/06/201952 CVB [id number] Interpreted by: QUINTIN DAY MD Electronically signed by: QUINTIN DAY MD 08/06/201952 Reviewed: Reviewed by Me Departure Communication (Admissions) Time/Spoke to Consulting Phy: 19:[address] KAMARA, agreeable with discharge plan of care. Impression Primary Impression: Dysmenorrhea Additional Impressions: Menorrhagia with regular cycle UTI (urinary tract infection) Disposition: HOME, SELF-CARE Condition: Improved Departure-Patient Inst. Decision time for Depature: 20:31 Referrals: [facility] (PCP/Family) Primary Care Physician Patient Instructions: Menstrual Cramps (DC), Heavy Periods (DC) Add. Discharge Instructions: Plan: 1. Discharge home. May use heating pad for comfort. Call Dr. Obrien office on Saturday for close follow up. 2. Take Ibupfrofen 800mg every 8 hours as needed for pain/bleeding with food. 3. Return to hospital on Saturday08/08/2020 for Transvaginal Ultrasound and Lab work. Bring requisition forms with you. 4. Drink plenty of fluids and take antibiotics as directed. 5. Return to ER for any concerning or worsening symptoms. All discharge instructions reviewed with patient and/or family. Voiced understanding. Scripts Cyclobenzaprine HCl (Cyclobenzaprine HCl) 10 Mg Tablet 10 MG PO Q8H PRN for SPASMS, #14 TAB 0 Refills Prov: WALTER JACKSON CALL CENTER REPRESENTATIVE 08/06/20 Sulfamethoxazole/Trimethoprim (Bactrim Ds Tablet) 1 Each Tablet 1 EACH PO BID for 10 Days, #20 TAB 0 Refills Prov: WALTER JACKSON CALL CENTER REPRESENTATIVE 08/06/20 Copy Copies To 1: DIONICIO OBRIEN STORMY D APRN Aug 06, 2020 18:48
[2020-08-06] MEDS ORDERED: IOHEXOL 350 MG/ML 100 ML (OMNIPAQUE 350) VIAL IV ONE (19:00)
[2020-08-06] MEDS ORDERED: HOLD METFORMIN - RECEIVED CONTRAST 20 ML VIAL IV SCH (19:00)
[2020-08-06] MEDS ORDERED: NS 100 ML (IVPB) BAG IV ONE (19:00)
[2020-08-06] MEDS ORDERED: CATHETER FLUSH 10 ML SYR IV PRN (19:00)
--- NOTE | 2020-08-06 19:35 | Diagnostic Imaging Report ---
PROCEDURE: CT abdomen and pelvis with contrast. TECHNIQUE: Multiple contiguous axial images were obtained through the abdomen and pelvis after administration of intravenous contrast. Auto Exposure Controls were utilized during the CT exam to meet ALARA standards for radiation dose reduction. All CT scans use one or more of the following dose optimizing techniques: automated exposure control, MA and/or KvP adjustment based on patient size and exam type or iterative reconstruction. DATE: August 06, 2020. COMPARISON: None. INDICATION: 29-year-old female, right lower quadrant abdominal pain. Vaginal bleeding. FINDINGS: The visualized portions of the lung bases are clear. The heart is not enlarged. There is no pericardial effusion. The liver is unremarkable in size and contour. There is no identified liver lesion. The main, right, and left portal veins are patent. The patient is status post cholecystectomy. There is no biliary ductal dilation. The main pancreatic duct is not abnormally dilated. Unremarkable appearance of the pancreatic parenchyma. The spleen is normal in size. The adrenal glands are unremarkable. Unremarkable appearance of the renal parenchyma. The urinary collecting systems are not distended. There is no identified renal or ureteral stone. Urinary bladder is underdistended and not well evaluated. Limited CT assessment of the uterus and adnexa is grossly unremarkable. The intestinal tract is not distended. The appendix is not well seen. There are no identified secondary findings to suggest acute appendicitis. There is no free intraperitoneal air. There is no drainable fluid collection. There is no free pelvic fluid. There is no identified abnormally enlarged lymph node in the abdomen or pelvis meeting CT size criteria for adenopathy. There is mild inflammatory stranding within the anterior abdominal wall subcutaneous tissues. The There are disc degenerative changes at L5-S1. There is no identified acute bony abnormality. IMPRESSION: CT ABDOMEN AND PELVIS. 1. No identified acute abnormality in the abdomen or pelvis. Dictated by: Dictated on workstation # [id number]
[2020-08-06] MEDS ORDERED: IBUPROFEN 800 MG (MOTRIN) TAB PO ONE ×2 (19:45→19:51)
[2020-08-06] MEDS ORDERED: cefTRIAXone FOR IV USE 1,000 MG in WATER (STERILE) FOR INJECTION 10 ML IV ONE (20:00)
[2020-08-06] MEDS ORDERED: ORPHENADRINE 60 MG/2 ML (NORFLEX) AMP (ED ONLY) IV ONE (20:30)
[2020-08-06] MEDS ORDERED: SULF1TAB35 PO (20:31)
[2020-08-06] MEDS ORDERED: CYCL10TA9 PO (21:07)
[2020-08-06 21:11] VITALS: BP 134/87
== END 2020-08-06 21:11 | disposition home or self-care (01) ==
LOC: EDUNIT# 16:52 → ER 16:54
DX: N94.6 Dysmenorrhea, unspecified (principal); N92.0 Excessive and frequent menstruation with regular cycle; N39.0 Urinary tract infection, site not specified; K21.9 Gastro-esophageal reflux disease without esophagitis; G89.29 Other chronic pain; M54.9 Dorsalgia, unspecified; E66.01 Morbid (severe) obesity due to excess calories; Z82.49 Family history of ischemic heart disease and other diseases of the circulatory system; Z68.45 Body mass index [BMI] 70 or greater, adult; Z88.5 Allergy status to narcotic agent; Z91.040 Latex allergy status; Z88.6 Allergy status to analgesic agent; Z88.8 Allergy status to other drugs, medicaments and biological substances; Z87.891 Personal history of nicotine dependence; Z79.52 Long term (current) use of systemic steroids; Z79.891 Long term (current) use of opiate analgesic
CPT/HCPCS: 36415; 74177; 80053; 80306; 81000; 84443; 84703; 85007; 85027; 86141; 87088; 87491; 87591